=== PATIENT | female | born 1940 | race Caucasian/White ===

== ENCOUNTER → 2022-03-08 | Day surgery (SDC) | payer MEDICARE ==
[2022-03-08 18:25] LABS: HCT 30.5 % (37.2-46.3); HGB 9.8 g/dL (12.0-15.0); MCH 30.8 pg (27.0-32.0); MCHC 32.1 g/dL (32.0-37.0); MCV 95.9 fL (80.0-97.0); Mean Platelet Volume 11.2 fL (9.5-12.2); NRBC Per 100 WBC 0 /100 WBCS (0.0-0.0); Platelet Count 179 X 10*3/uL (140-440); RBC 3.18 X 10*6/uL (4.10-5.20); RDW 13.9 % (11.5-14.5); WBC 6.92 X 10*3/uL (4.50-10.00)
== END ==
LOC: LABMARSNF 12:38 → EDSTATUS 12:40
PROVIDERS: ATTEND Family Medicine
DX: I48.91 Unspecified atrial fibrillation (principal); I10 Essential (primary) hypertension
CPT/HCPCS: 85027

== ENCOUNTER 2024-09-29 21:44 | Inpatient (IN) | payer MEDICARE, OTHER ==
--- NOTE | 2024-09-29 21:55 | ED ---
General Adult HPI - General Stated complaint: Weakness Time Seen by Provider: 09/29/24 21:46 - History of Present Illness Initial comments: Patient is an 84-year-old female past medical history of alcoholism, dementia, TIAs, presenting today for altered mental status. History is limited, as patient currently denies any complaints. Per report patient is normally AO x 4, was found by [facility] staff this morning at 7 AM and noted to be AO x 1 with slurred speech. This evening patient's nurse called 911 when patient was noted to have low blood pressure. Patient currently denies any complaints. She denies headache, dizziness, chest pain, shortness of breath, cough, abdominal pain, dysuria, urinary frequency, headache, numbness, weakness. She states that she was told she was here for low blood pressure. She is currently AO x4. She is not on blood thinners. On review of patient's medical [facility], there is no documented history of atrial fibrillation though she is on metoprolol 50 mg daily. No documented history of heart failure. On chart review it appears there is a history of atrial fibrillation on a prior visit in 2021, however no note visible to see further details. Pt denies hx a fib. - Related Data Home Medications Medication Instructions Recorded Confirmed Acetaminophen [Tylenol] 650 mg PO Q6H PRN 09/30/24 09/30/24 Aspirin 81 mg PO DAILY 09/30/24 09/30/24 Atorvastatin [Lipitor] 40 mg PO HS 09/30/24 09/30/24 Metoprolol Succinate (ER) [Toprol 50 mg PO DAILY 09/30/24 09/30/24 Xl] Mirtazapine 7.5 mg PO HS 09/30/24 09/30/24 amLODIPine [Norvasc] 5 mg PO DAILY 09/30/24 09/30/24 Allergies Allergy/AdvReac Type Severity Reaction Status Date / Time No Known Allergies Allergy Verified 09/30/24 07:28 Review of Systems ROS Statement: Those systems with pertinent positive or pertinent negative responses have been documented in the HPI. ROS Other: All systems not noted in ROS Statement are negative. General Exam - General Exam Comments Initial Comments: PE: CONSTITUTIONAL: No apparent distress, chronically ill-appearing, nontoxic SKIN: Warm, dry, no jaundice, hives or petechiae EYES: Pupils are equally round, extraocular movements intact without nystagmus, clear conjunctiva, non-icteric sclera HENT: Normocephalic, atraumatic, dry mucus membranes, oropharynx clear without exudates NECK: , Full range of motion, normal appearance PULMONARY: Clear to auscultation without wheezes, rhonchi, or rales, normal excursion, no accessory muscle use and no stridor CARDIOVASCULAR: Irregularly irregular rate and rhythm, tachycardia, normal S1 and S2. Pulm systolic rubs or gallops. Strong radial pulses with intact distal perfusion. No lower extremity edema GASTROINTESTINAL: Soft, active bowel sounds throughout, non-tender, non- distended, no palpable masses, no rebound or guarding. No hepatosplenomegaly GENITOURINARY: MUSCULOSKELETAL: Extremities have no gross deformity, no edema, redness, or swelling. No calf swelling NEUROLOGIC:_a/o x 3, GCS 15, normal mentation and speech. Moves all extremities x 4 without motor or sensory deficit, cranial nerves: II (visual park without defects), III, IV and (extraocular movements are intact, pupils are equal with normal reaction to light), V (intact facial sensation and jaw opening), VII (no facial droop), IX and X (normal palate movement, midline uvula, normal voice), XI (symmetrical shoulder shrug and lateral head rotation against resistance), XII (midline tongue protrusion). Motor strength is 4/5 and equal in all extremities. No abnormal movements. Normal muscle tone. Sensation to light touch is intact bilaterally. PSYCHIATRIC:_normal mood and affect, thought process is clear and linear Course Vital Signs 09/29/24 09/29/24 09/29/24 21:50 21:59 22:45 Temperature 97.3 F L 97.6 F Pulse Rate 111 H 114 H 101 H Respiratory 18 18 18 Rate Blood Pressure 89/59 94/58 94/58 O2 Sat by Pulse 97 97 99 Oximetry 09/29/24 09/29/24 09/30/24 23:27 23:42 00:45 Temperature Pulse Rate 89 91 70 Respiratory 16 18 18 Rate Blood Pressure 84/58 93/79 O2 Sat by Pulse 96 97 Oximetry 09/30/24 09/30/24 09/30/24 00:53 01:00 02:00 Temperature Pulse Rate 75 80 79 Respiratory 18 18 18 Rate Blood Pressure 90/54 93/52 109/54 O2 Sat by Pulse 99 97 Oximetry 09/30/24 09/30/24 09/30/24 03:00 04:00 05:30 Temperature Pulse Rate 80 80 80 Respiratory 16 18 18 Rate Blood Pressure 99/52 97/57 106/56 O2 Sat by Pulse 96 96 Oximetry 09/30/24 09/30/24 09/30/24 06:30 07:40 09:05 Temperature 97.7 F Pulse Rate 84 82 103 H Respiratory 16 16 18 Rate Blood Pressure 103/54 107/56 89/48 O2 Sat by Pulse 100 98 Oximetry 09/30/24 09/30/24 09/30/24 10:18 11:14 12:09 Temperature Pulse Rate 107 H 89 85 Respiratory 16 16 16 Rate Blood Pressure 90/63 93/56 110/60 O2 Sat by Pulse 98 97 100 Oximetry 09/30/24 09/30/24 09/30/24 12:10 15:09 16:07 Temperature 97.9 F Pulse Rate 82 72 71 Respiratory 16 16 16 Rate Blood Pressure 110/60 110/58 97/56 O2 Sat by Pulse 99 99 93 L Oximetry 09/30/24 16:39 Temperature 98.0 F Pulse Rate 74 Respiratory 16 Rate Blood Pressure 102/68 O2 Sat by Pulse 99 Oximetry - Reevaluation(s) Reevaluation #1: WBC count ~[id number]. Now suspect pt's presentation today 2/2 infection. Blood cultures and lactic have already been ordered. Unknown infectious source though suspect UTI given pt's age and appears chronically debilitated. Ordered 1 G Rocephin, UA pending. Pt has received total 30 cc/kg bolus of 1500 ml. 09/29/24 22:57 Reevaluation #2: On reassessment patient is sleeping comfortably. Awakens easily. Blood pressure 93/55, MAP of 73. Pulse ox 96%. Heart rate controlled 79 beats per minutes, Cardizem has been turned off. Appears patient may have converted to sinus rhythm we will obtain repeat EKG to confirm. Patient will be admitted for further treatment. 09/30/24 00:23 EKG Findings - EKG Comments: EKG Findings:: A-fib with RVR, rate 105 bpm, intervals within acceptable limits, normal axis, no significant ST elevations or depressions, small T wave inversion lead III. Sinus rhythm, rate 70 bpm, intervals within acceptable limits, normal axis, no significant ST elevations or depressions, small Q wave present lead II, no arrythmia Medical Decision Making - Medical Decision Making Was pt. sent in by a medical professional or institution (, PA, DOUBLE BACK OPERATOR, urgent care, hospital, or correction...) When possible be specific @Send from the [facility] Did you speak to anyone other than the patient for history (EMS, parent, family, police, friend...)? What history was obtained from this source @ -No Did you review nursing and triage notes (agree or disagree)? Why? @ -I reviewed and agree with nursing and triage notes Were old charts reviewed (outside hosp., previous admission, EMS record, old EKG, old radiological studies, urgent care reports/EKG's, correction records)? Report findings @ -Medical records reviewed-no full records available for review, there is a record from a lab visit from February 2022 associated diagnoses of atrial fibril lation, there is no associated with this. I reviewed medical records [facility] There is no documented history of atrial fibrillation, patient is not on blood thinners, she is on metoprolol 50 mg daily Differential Diagnosis (chest pain, altered mental status, abdominal pain women, abdominal pain men, vaginal bleeding, weakness, fever, dyspnea, syncope, headache, dizziness, GI bleed, back pain, seizure, CVA, palpatations, mental health, musculoskeletal)? Differential Altered Mental Status: Hypoglycemia, DKA, hypercapnia, ETOH, overdose, CO poisoning, trauma, myxedema c connie, HTN encephalopathy, infection, encephalitis, psychosis, intercranial hemorrhage, hepatic encephalopathy, meningitis, CVA, this is not meant to be an all-inclusive list EKG interpreted by me (3pts min.). @ -As above X-rays interpreted by me (1pt min.). @Personally reviewed CXR, I see no evidence of cardiomegaly or consolidation, radiologist read poss. retro cardiac consolidation, I disagree with radiologist interpretation CT interpreted by me (1pt min.). @ -No evidence of hemorrhage, agree with rad. interpretation U/S interpreted by me (1pt. min.). @ -No hydronephrosis What testing was considered but not performed or refused? (CT, X-rays, U/S, labs)? Why? @Septic workup was considered however I suspect patient's hypotension is driven by tachycardia, she is afebrile, denies infectious symptoms is nontoxic- appearing What meds were considered but not given or refused? Why? @ -None Did you discuss the management of the patient with other professionals (professionals i.e. , PA, DOUBLE BACK OPERATOR, lab, RT, psych nurse, social service worker, ticket taker, teacher, driver's license reviewing officer, classification case manager)? Give summary @ -No Was smoking cessation discussed for >3mins.? @ -No Was critical care preformed (if so, how long)? @ -Yes 75 minutes Were there social determinants of health that impacted care today? How? (Homel essness, low income, unemployed, alcoholism, drug addiction, transportation, low edu. Level, literacy, decrease access to med. care, halfway, rehab)? @ -No Was there de-escalation of care discussed even if they declined (Discuss DNR or withdrawal of care, Hospice)? @ -No What co-morbidities impacted this encounter? (DM, HTN, Smoking, COPD, CAD, Cancer, CVA, ARF, Chemo, Hep., AIDS, mental health diagnosis, sleep apnea, morbid obesity)? @Dementia, TIA, Was patient admitted / discharged? Hospital course, mention meds given and route, prescriptions, significant lab abnormalities, going to OR and other pertinent info. @ -Admission- Patient is an 84-year-old female presenting today for transient altered mental status and hypotension from [facility]. On arrival patient is at her reported baseline, she denies any complaints. She is in atrial fibrillation with RVR with heart rate of 111. Blood pressure on arrival is hypotensive, 89/59. She has received approximately 600 cc IV fluids prior to arrival. While interviewing patient and examining her 1 litre IV fluids completed transfusing and blood pressure did respond, with MAP of 65 on repeat check. Patient had no focal neurodeficits on exam, she has dry mucous membranes, lungs are clear to auscultation, irregularly irregular rate and rhythm on cardiac exam with holosystolic murmur. No LE edema, abdomen soft and nontender. No infectious symptoms. Patient will receive IV Cardizem bolus and infusion,. Heparin was not initially ordered given patient's altered mental status prior to arrival. CT brain will be obtained to ensure no signs of intracranial hemorrhage prior to administering heparin. I suspect patient symptoms may be secondary to volume depletion or arrhythmia though will obtain blood culture and lactic given vital signs on arrival. Additionally CT brain, chest x-ray, troponin, coags, CBC, CMP, TSH with reflex T4, ammonia level and magnesium levels will be obtained in addition to urinalysis. Labs reviewed, BUN 196 close creatinine 3.09, previously in 2021 was 0.64, GFR of 13, consistent with acute renal failure, ammonia 43, potassium 3.3 ordered replacement. Will order renal ultrasound. Additionally urinalysis was consistent with UTI. Patient has been started on Rocephin. Lactulose ordered. Patient spontaneously converted to sinus rhythm. At this point will hold on heparin infusion. BP has stabilized. On reassessment she is resting comfortably. Plan for admission for sepsis, metabolic encephalopathy, acute renal failure. Case discussed with Dr. Valentine who kindly accepted pt for admission. Undiagnosed new problem with uncertain prognosis? @ -No Drug Therapy requiring intensive monitoring for toxicity (Heparin, Nitro, Insulin, Cardizem)? @ -No Were any procedures done? @ -No Diagnosis/symptom? @sepsis, metabolic encephalopathy, acute renal failure. Acute, or Chronic, or Acute on Chronic? @acute Uncomplicated (without systemic symptoms) or Complicated (systemic symptoms)? @complicated Side effects of treatment? @ -No Exacerbation, Progression, or Severe Exacerbation? @ -No Poses a threat to life or bodily function? How? (Chest pain, USA, OR, pneumonia, PE, COPD, DKA, ARF, appy, cholecystitis, CVA, Diverticulitis, Homicidal, Suicidal, threat to staff... and all critical care pts) @Yes - Lab Data Result diagrams: 10/02/24 14:50 10/04/24 06:10 Lab Results 09/29/24 09/29/24 09/29/24 Range/Units 22:21 22:21 22:21 WBC 32.27 H (4.50-10.00) 10*3/uL RBC 3.30 L (4.10-5.20) 10*6/uL Hgb 10.1 L (12.0-15.0) g/dL Hct 27.7 L (37.2-46.3) % MCV 83.9 (80.0-97.0) fL MCH 30.6 (27.0-32.0) pg MCHC 36.5 (32.0-37.0) g/dL Plt Count 149 (140-440) 10*3/uL MPV 11.1 (9.5-12.2) fL Immature Gran % (Auto) 1.3 % Neutrophils % 92.0 % Lymphocytes % 3.0 % Monocytes % 3.3 % Eosinophils % 0.1 % Basophils % 0.3 % Immature Gran # 0.41 H (0.00-0.04) 10*3/uL Neutrophils # 29.71 H (1.80-7.70) 10*3/uL Lymphocytes # 0.97 (0.90-5.00) 10*3/uL Monocytes # 1.06 H (0.20-1.00) 10*3/uL Eosinophils # 0.02 L (0.04-0.35) 10*3/uL Basophils # 0.10 (0.00-0.10) 10*3/uL PT 12.5 (10.0-12.5) sec INR 1.2 H (<1.2) APTT 26.1 (22.0-30.0) sec Sodium 134 L (137-145) mmol/L Potassium 3.3 L (3.5-5.1) mmol/L Chloride 100 (98-107) mmol/L Carbon Dioxide 17 L (22-30) mmol/L Anion Gap 17 mmol/L BUN 196 H* (7-17) mg/dL Creatinine 3.09 H (0.52-1.04) mg/dL Est GFR (CKD-EPI)AfAm 15 (>60 ml/min/1.73 sqM) Est GFR (CKD-EPI)NonAf 13 (>60 ml/min/1.73 sqM) Glucose 115 H (74-99) mg/dL Plasma Lactic Acid Kael (0.7-2.0) mmol/L Calcium 7.0 L (8.4-10.2) mg/dL Magnesium 2.2 (1.6-2.3) mg/dL Total Bilirubin 1.7 H (0.2-1.3) mg/dL AST 27 (14-36) U/L ALT 30 (4-34) U/L Alkaline Phosphatase 165 H (38-126) U/L Ammonia (<30) umol/L Troponin I (0.000-0.034) ng/mL Total Protein 4.9 L (6.3-8.2) g/dL Albumin 2.1 L (3.5-5.0) g/dL TSH 1.770 (0.465-4.680) mIU/L Urine Color Urine Appearance (Clear) Urine pH (5.0-8.0) Ur Specific Marion (1.001-1.035) Urine Protein (Negative) Urine Glucose (UA) (Negative) Urine Ketones (Negative) Urine Blood (Negative) Urine Nitrite (Negative) Urine Bilirubin (Negative) Urine Urobilinogen (<2.0) mg/dL Ur Leukocyte Esterase (Negative) Urine RBC (0-5) /hpf Urine WBC (0-5) /hpf Ur Squamous Epith Cells (0-4) /hpf Urine Bacteria (None) /hpf Cellular Casts (0) /lpf Hyaline Casts (0-2) /lpf Granular Casts (0) /lpf Urine Mucus (None) /hpf 09/29/24 09/29/24 09/29/24 Range/Units 22:21 22:21 23:10 WBC (4.50-10.00) 10*3/uL RBC (4.10-5.20) 10*6/uL Hgb (12.0-15.0) g/dL Hct (37.2-46.3) % MCV (80.0-97.0) fL MCH (27.0-32.0) pg MCHC (32.0-37.0) g/dL Plt Count (140-440) 10*3/uL MPV (9.5-12.2) fL Immature Gran % (Auto) % Neutrophils % % Lymphocytes % % Monocytes % % Eosinophils % % Basophils % % Immature Gran # (0.00-0.04) 10*3/uL Neutrophils # (1.80-7.70) 10*3/uL Lymphocytes # (0.90-5.00) 10*3/uL Monocytes # (0.20-1.00) 10*3/uL Eosinophils # (0.04-0.35) 10*3/uL Basophils # (0.00-0.10) 10*3/uL PT (10.0-12.5) sec INR (<1.2) APTT (22.0-30.0) sec Sodium (137-145) mmol/L Potassium (3.5-5.1) mmol/L Chloride (98-107) mmol/L Carbon Dioxide (22-30) mmol/L Anion Gap mmol/L BUN (7-17) mg/dL Creatinine (0.52-1.04) mg/dL Est GFR (CKD-EPI)AfAm (>60 ml/min/1.73 sqM) Est GFR (CKD-EPI)NonAf (>60 ml/min/1.73 sqM) Glucose (74-99) mg/dL Plasma Lactic Acid Kael 0.9 (0.7-2.0) mmol/L Calcium (8.4-10.2) mg/dL Magnesium (1.6-2.3) mg/dL Total Bilirubin (0.2-1.3) mg/dL AST (14-36) U/L ALT (4-34) U/L Alkaline Phosphatase (38-126) U/L Ammonia 43 H (<30) umol/L Troponin I 0.019 (0.000-0.034) ng/mL Total Protein (6.3-8.2) g/dL Albumin (3.5-5.0) g/dL TSH (0.465-4.680) mIU/L Urine Color Yellow Urine Appearance Turbid H (Clear) Urine pH 5.0 (5.0-8.0) Ur Specific Marion 1.013 (1.001-1.035) Urine Protein Trace H (Negative) Urine Glucose (UA) Negative (Negative) Urine Ketones Negative (Negative) Urine Blood Negative (Negative) Urine Nitrite Negative (Negative) Urine Bilirubin Negative (Negative) Urine Urobilinogen <2.0 (<2.0) mg/dL Ur Leukocyte Esterase Moderate H (Negative) Urine RBC 9 H (0-5) /hpf Urine WBC 48 H (0-5) /hpf Ur Squamous Epith Cells 5 H (0-4) /hpf Urine Bacteria Occasional H (None) /hpf Cellular Casts 2 (0) /lpf Hyaline Casts 25 H (0-2) /lpf Granular Casts 9 (0) /lpf Urine Mucus Rare H (None) /hpf Disposition Clinical Impression: Acute metabolic encephalopathy, Uremic encephalopathy, Acute renal failure, Sepsis secondary to UTI, Hypokalemia Disposition: ADMITTED IP TO THIS HOSP Condition: Stable
[2024-09-29] MEDS: SODIUM CHLORIDE 0.9% 1,000 ML IV ONE (22:17)
[2024-09-29] MEDS: SODIUM CHLORIDE 0.9% 500 ML 500 ML IV ONE ×2 (22:27→23:23)
[2024-09-29 22:33] LABS: Basophils % (A) 0.3 %; Eosinophils # (A) 0.02 10*3/uL (0.04-0.35); Eosinophils % (A) 0.1 %; HCT 27.7 % (37.2-46.3); HGB 10.1 g/dL (12.0-15.0); Lymphocytes # (A) 0.97 10*3/uL (0.90-5.00); MCH 30.6 pg (27.0-32.0); MCHC 36.5 g/dL (32.0-37.0); MCV 83.9 fL (80.0-97.0); Mean Platelet Volume 11.1 fL (9.5-12.2); Monocytes # (A) 1.06 10*3/uL (0.20-1.00); Monocytes % (A) 3.3 %; Neutrophils # (A) 29.71 10*3/uL (1.80-7.70); Platelet Count 149 10*3/uL (140-440); RDW 13.9 % (11.5-14.5); WBC 32.27 10*3/uL (4.50-10.00)
[2024-09-29] MEDS: DILTIAZEM 125 MG in DEXTROSE 5% IN WATER 100 ML IV SCH (22:54)
[2024-09-29 22:58] LABS: INR 1.2 (<1.2); Partial Thromboplastin Time 26.1 sec (22.0-30.0); Prothrombin Time 12.5 sec (10.0-12.5)
[2024-09-29 23:21] LABS: Lactic Acid, Venous 0.9 mmol/L (0.7-2.0)
[2024-09-29 23:23] LABS: ALT 30 U/L (4-34); AST 27 U/L (14-36); African American GFR (CKD) 15 (>60 ml/min/1.73 sqM); Albumin 2.1 g/dL (3.5-5.0); Alkaline Phosphatase 165 U/L (38-126); Anion Gap 17 mmol/L; Carbon Dioxide 17 mmol/L (22-30); Chloride 100 mmol/L (98-107); Glucose 115 mg/dL (74-99); Magnesium 2.2 mg/dL (1.6-2.3); Non-African American GFR(CKD) 13 (>60 ml/min/1.73 sqM); Potassium 3.3 mmol/L (3.5-5.1); Sodium 134 mmol/L (137-145); Total Bilirubin 1.7 mg/dL (0.2-1.3); Total Protein 4.9 g/dL (6.3-8.2)
[2024-09-29] MEDS: DILTIAZEM 5 MG/ML 5 ML VIAL IVP STA (23:23)
[2024-09-29] MEDS: cefTRIAXone IN SWFI 1,000 MG/10 ML SYRINGE IVP STA (23:30)
[2024-09-29 23:31] LABS: Appearance,Urine Turbid (Clear); Bacteria,Urine Occasional /hpf; Bilirubin,Urine Negative (Negative); Blood,Urine Negative (Negative); Cellular Casts,Urine 2 /lpf (0); Color,Urine Yellow; Glucose,Urine (UA) Negative (Negative); Granular Casts,Urine 9 /lpf (0); Hyaline Casts,Urine 25 /lpf (0-2); Ketones,Urine Negative (Negative); Leukocyte Esterase,Urine Moderate (Negative); Mucus,Urine Rare /hpf; Nitrite,Urine Negative (Negative); Protein,Urine Trace (Negative); RBC,Urine 9 /hpf (0-5); Specific Gravity,Urine 1.013 (1.001-1.035); Squamous Epithelial Cell,Urine 5 /hpf (0-4); Urobilinogen,Urine <2.0 mg/dL (<2.0); WBC,Urine 48 /hpf (0-5)
[2024-09-29] MEDS: SODIUM CHLORIDE 0.9% 1,000 ML IV SCH (23:33)
[2024-09-29 23:59] LABS: Blood Urea Nitrogen 196 mg/dL (7-17)
--- NOTE | 2024-09-30 00:11 | CT ---
EXAM: CT Head Without Intravenous Contrast CLINICAL HISTORY: ITS.REASON CT Reason: hx TIA, was altered, slurred speech, now @ baselin TECHNIQUE: Axial computed tomography images of the head/brain without intravenous contrast. CTDI is 49.2 mGy and DLP is 1186.4 mGy-cm. This CT exam was performed using one or more of the following dose reduction techniques: automated exposure control, adjustment of the mA and/or kV according to patient size, and/or use of iterative reconstruction technique. COMPARISON: No relevant prior studies available. FINDINGS: No acute intracranial hemorrhage. No midline shift or mass effect. The territorial alvarez-white matter differentiation is maintained throughout. Age-related cerebral volume loss. Periventricular and subcortical white matter hypoattenuation, consistent with chronic microangiopathy. The visualized orbits appear grossly unremarkable. The calvarium is intact. The visualized paranasal sinuses and mastoid air cells are grossly clear. IMPRESSION: No acute intracranial hemorrhage, midline shift, or mass effect.
[2024-09-30] MEDS ORDERED: HEPARIN SODIUM 1,000 UN/ML (10ML VL) IV PRN (00:24)
[2024-09-30] MEDS ORDERED: HEPARIN SODIUM 1,000 UN/ML (10ML VL) IV ONE (00:24)
[2024-09-30] MEDS: POTASSIUM CHLORIDE 20 MEQ in WATER FOR INJECTION 1 100ML.BAG IVPB STA (00:29)
[2024-09-30] MEDS ORDERED: HEPARIN SOD,PORK IN 0.45% NACL 25,000 UNIT in 0.45% NACL 1 250ML.BAG IV SCH (00:30)
[2024-09-30] MEDS ORDERED: DOCUSATE 100 MG CAP PO PRN (00:36)
[2024-09-30] MEDS ORDERED: MAG HYDROX/AL HYDROX/SIMETH 30 ML CUP PO PRN (00:36)
[2024-09-30] MEDS ORDERED: CALCIUM CARBONATE 500 MG CHEWABLE PO PRN (00:36)
[2024-09-30] MEDS ORDERED: ONDANSETRON 4 MG/2 ML VIAL IVP PRN (00:36)
[2024-09-30] MEDS ORDERED: ACETAMINOPHEN TAB 325 MG TAB PO PRN ×2 (00:36→11:00)
[2024-09-30] MEDS ORDERED: traMADol 50 MG TAB PO PRN (00:36)
[2024-09-30] MEDS ORDERED: NALOXONE 0.4 MG/ML 1 ML VIAL IV PRN (00:36)
--- NOTE | 2024-09-30 00:59 | XR ---
EXAM: XR Chest, 1 View CLINICAL HISTORY: ITS.REASON XR Reason: altered mental status TECHNIQUE: Frontal view of the chest. COMPARISON: No relevant prior studies available. FINDINGS: Lungs: Mild retrocardiac opacity, correlate for pneumonia. Pleural space: Unremarkable. No pneumothorax. Heart: Unremarkable. No cardiomegaly. Mediastinum: Unremarkable. Bones/joints: Unremarkable. IMPRESSION: Mild retrocardiac opacity, correlate for pneumonia.
[2024-09-30] MEDS: LACTULOSE 20 GM/30 ML CUP PO ONE (01:05)
[2024-09-30] MEDS: CALCIUM GLUCONATE IN NACL 1 GM in SALINE 1 100ML.BAG IVPB ONE (01:43)
--- NOTE | 2024-09-30 02:45 | US ---
EXAM: US Retroperitoneal Limited, Renal CLINICAL HISTORY: ITS.REASON US Reason: LUISA, sediment in urine TECHNIQUE: Real-time limited ultrasound of the retroperitoneum with image documentation. COMPARISON: No relevant prior studies available. FINDINGS: Right kidney: Right kidney measures 9.7 cm. No hydronephrosis, mass, cyst, or stone. Left kidney: Left kidney measures 8.9 cm. No hydronephrosis, mass, cyst, or stone. Bladder: Urinary bladder not visualized. Other findings: Cholelithiasis. IMPRESSION: No hydronephrosis.
[2024-09-30 07:59] LABS: African American GFR (CKD) 18 (>60 ml/min/1.73 sqM); Anion Gap 15 mmol/L; Calcium 7.2 mg/dL (8.4-10.2); Carbon Dioxide 17 mmol/L (22-30); Chloride 106 mmol/L (98-107); Glucose 99 mg/dL (74-99); Non-African American GFR(CKD) 15 (>60 ml/min/1.73 sqM); Potassium 3.6 mmol/L (3.5-5.1); Sodium 138 mmol/L (137-145)
[2024-09-30 08:14] LABS: Blood Urea Nitrogen 174 mg/dL (7-17)
[2024-09-30] MEDS ORDERED: FAMOTIDINE 20 MG TAB PO SCH (09:00)
[2024-09-30] MEDS: HEPARIN SODIUM,PORCINE 5,000 UNIT/ML 1 ML VIAL SQ SCH (09:07)
--- NOTE | 2024-09-30 10:55 | P.NPCON ---
History of Present Illness - Reason for Consult acute renal failure - History of Present Illness Reason for consultation: Acute kidney injury History of present illness: Patient is 84-year-old female seen in renal consultation for acute kidney injury. Patient's creatinine in February 2022 was 0.6 and elevated at 3.09 this admission. It is improved to 2.7 today. BUN also extremely elevated but is trending down. Patient is unclear as to why she came to the hospital. She presents from an extended care facility. She was noted to be hypotensive with blood pressure in the systolic 80s and diastolic in the 50s on admission. She was noted to be in A-fib with RVR and was placed on Cardizem drip which has now been discontinued. I do not see any diuretics or NSAIDs on her home medication list. Oral intake has been poor the last few days. No hydronephrosis noted on renal ultrasound. She is on room air. Vital signs are stable. General: No acute distress. HEENT: Head exam is unremarkable. LUNGS: No audible rhonchi or wheezes. HEART: Rate and Rhythm are regular. ABDOMEN: Nontender. EXTREMITITES: No edema. Past Medical History Past Medical History: Atrial Fibrillation History of Any Multi-Drug Resistant Organisms: None Reported Past Psychological History: No Psychological Hx Reported Smoking Status: Never smoker Past Alcohol Use History: None Reported Past Drug Use History: None Reported Medications and Allergies Home Medications Medication Instructions Recorded Confirmed Type Acetaminophen [Tylenol] 650 mg PO Q6H PRN 09/30/24 09/30/24 History Aspirin 81 mg PO DAILY 09/30/24 09/30/24 History Atorvastatin [Lipitor] 40 mg PO HS 09/30/24 09/30/24 History Metoprolol Succinate (ER) [Toprol 50 mg PO DAILY 09/30/24 09/30/24 History Xl] Mirtazapine 7.5 mg PO HS 09/30/24 09/30/24 History amLODIPine [Norvasc] 5 mg PO DAILY 09/30/24 09/30/24 History Allergies Allergy/AdvReac Type Severity Reaction Status Date / Time No Known Allergies Allergy Verified 09/30/24 07:28 Physical Exam Vitals: Vital Signs Temp Pulse Resp BP Pulse Ox 09/30/24 10:18 107 H 16 90/63 98 09/30/24 09:05 103 H 18 89/48 98 09/30/24 07:40 97.7 F 82 16 107/56 100 09/30/24 06:30 84 16 103/54 09/30/24 05:30 80 18 106/56 96 09/30/24 04:00 80 18 97/57 96 09/30/24 03:00 80 16 99/52 09/30/24 02:00 79 18 109/54 09/30/24 01:00 80 18 93/52 97 09/30/24 00:53 75 18 90/54 99 09/30/24 00:45 70 18 93/79 97 09/29/24 23:42 91 18 84/58 96 09/29/24 23:27 89 16 09/29/24 22:45 97.6 F 101 H 18 94/58 99 09/29/24 21:59 114 H 18 94/58 97 09/29/24 21:50 97.3 F L 111 H 18 89/59 97 Intake and Output 09/29/24 09/30/24 09/30/24 22:59 06:59 14:59 Intake Total 12.0 Balance 12.0 Intake: Intake, IV Titration 12.0 Amount Diltiazem 125 mg In 12.0 Dextrose 5% in Water 100 ml @ 5 MG/HR 5 mls/hr IV .Q24H [facility] Rx#:[id number] Other: Weight 49.895 kg Results - Lab Results Most recent lab results Calcium 7.2 mg/dL (8.4-10.2) L 09/30/24 07:18 Magnesium 2.0 mg/dL (1.6-2.3) 09/30/24 07:18 09/29/24 22:21 09/30/24 07:18 Assessment and Plan Plan: Assessment: 1. Acute kidney injury secondary to ATN secondary to hypovolemia and hypotension. Creatinine 3.09 on admission and is 2.7 today. Creatinine in February 2022 was 0.6. No hydronephrosis noted on kidney ultrasound. 2. A-fib with RVR status post Cardizem drip. 3. Metabolic acidosis secondary to acute kidney injury and IV fluids. 4. UTI. Received Rocephin on admission. 5. Hypokalemia from poor intake. Magnesium normal. Replaced. Better. Plan: Change IV fluids from normal saline to bicarb drip. Follow-up echocardiogram. Avoid nephrotoxins. Continue to monitor renal function and urine output. Bladder scan to rule out urinary retention. Thank you for the consultation. I will continue to follow the patient with you during her hospital stay.
--- NOTE | 2024-09-30 11:06 | P.CRDCN ---
History of Present Illness Consult date: 09/30/24 Reason for Consult (text): A-fib with RVR History of present illness: This is an 84-year-old with past medical history of dementia, alcohol abuse, TIAs. Patient presented to the hospital due to altered mental status. Patient resides at [facility] [place] [facility] and was found to have a significant change in mental status as well as slurred speech and was brought into the hospital for further evaluation. Patient apparently was back to baseline mentation in the emergency center but was found to be in atrial fibrillation which is new for her. Patient was also found to be hypotensive. Blood pressure 107/56, heart rate 82, pulse ox 100% on room air. Patient is seen today in the emergency center waiting for a bed on the cardiac stepdown unit. Patient has been started on Cardizem drip currently at 5 mg/h and subcu heparin. Potassium and calcium been replaced. She is status post 2 L of IV fluid bolus -EKG: #1 atrial fibrillation 104 bpm, #2 sinus rhythm at 78 bpm. -Chest x-ray: Mild retrocardiac opacity. Correlate for pneumonia -CT brain: No acute process. -Renal ultrasound reveals no hydronephrosis. -Laboratory studies: Troponin negative x 2 WBC 32.2, hemoglobin 10.1. INR 1.2. Sodium 134, potassium 3.3, BUN 196, creatinine 3.09., Magnesium 2.2, alkaline phosphatase 165, ammonia 43. Calcium 7.0. Ionized calcium 3.9. Urinalysis positive for infection. -Home cardiac medications: Amlodipine 5 mg daily, aspirin 81 mg daily, atorvastatin 40 mg at bedtime, metoprolol succinate 50 mg daily. Review Of Systems: At the time of my exam: CONSTITUTIONAL: Denies fever or chills. HEENT: Denies blurred vision, vision changes, or eye pain. Denies hemoptysis CARDIOVASCULAR: Denies chest pain. Denies orthopnea. Denies PND. Denies palpitations RESPIRATORY: Denies shortness of breath. GASTROINTESTINAL: Denies abdominal pain. Denies nausea or vomiting. HEMATOLOGIC: Denies bleeding disorders. GENITOURINARY: Denies any blood in urine. SKIN: Denies puritis. Denies rash. Physical examination: Gen: This is an 84-year-old thin cachectic appearing female in no acute distress VS: reviewed HEENT: Head is atraumatic, normocephalic. Pupils equal, round. Sclerae is anicteric. NECK: Supple. No JVD. LUNGS: Clear to auscultation. No wheezes or rhonchi. No intercostal retractions. HEART: Regular rate and rhythm. 4/6 systolic murmur at the right border and apex. ABDOMEN: Soft No tenderness. EXTREMITIES: No pedal edema. No calf tenderness. NEUROLOGICAL: Patient is awake. Assessment: New onset paroxysmal A-fib with RVR, converted to sinus rhythm Acute kidney injury Metabolic acidosis Leukocytosis, UTI Possible pneumonia Dementia Alcohol abuse TIAs Severe protein calorie malnutrition with BMI of 18 Plan: Resume patient's home cardiac medications, hold amlodipine due to hypotension Discontinue Cardizem drip Obtain 2-D echocardiogram and Doppler study to assess cardiac structure and function Further recommendations to follow based upon clinical course Thank you kindly for this consultation. Nurse practitioner note has been reviewed, I agree with documented findings and plan of care. Patient was seen and examined. Past Medical History Past Medical History: Atrial Fibrillation History of Any Multi-Drug Resistant Organisms: None Reported Past Psychological History: No Psychological Hx Reported Smoking Status: Never smoker Past Alcohol Use History: None Reported Past Drug Use History: None Reported Medications and Allergies Home Medications Medication Instructions Recorded Confirmed Type Acetaminophen [Tylenol] 650 mg PO Q6H PRN 09/30/24 09/30/24 History Aspirin 81 mg PO DAILY 09/30/24 09/30/24 History Atorvastatin [Lipitor] 40 mg PO HS 09/30/24 09/30/24 History Metoprolol Succinate (ER) [Toprol 50 mg PO DAILY 09/30/24 09/30/24 History Xl] Mirtazapine 7.5 mg PO HS 09/30/24 09/30/24 History amLODIPine [Norvasc] 5 mg PO DAILY 09/30/24 09/30/24 History Allergies Allergy/AdvReac Type Severity Reaction Status Date / Time No Known Allergies Allergy Verified 09/30/24 07:28 Physical Exam Vitals: Vital Signs Temp Pulse Resp BP Pulse Ox 09/30/24 07:40 97.7 F 82 16 107/56 100 09/30/24 06:30 84 16 103/54 09/30/24 05:30 80 18 106/56 96 09/30/24 04:00 80 18 97/57 96 09/30/24 03:00 80 16 99/52 09/30/24 02:00 79 18 109/54 09/30/24 01:00 80 18 93/52 97 09/30/24 00:53 75 18 90/54 99 09/30/24 00:45 70 18 93/79 97 09/29/24 23:42 91 18 84/58 96 09/29/24 23:27 89 16 09/29/24 22:45 97.6 F 101 H 18 94/58 99 09/29/24 21:59 114 H 18 94/58 97 09/29/24 21:50 97.3 F L 111 H 18 89/59 97 Intake and Output 09/29/24 09/30/24 09/30/24 22:59 06:59 14:59 Intake Total 12.0 Balance 12.0 Intake: Intake, IV Titration 12.0 Amount Diltiazem 125 mg In 12.0 Dextrose 5% in Water 100 ml @ 5 MG/HR 5 mls/hr IV .Q24H [facility] Rx#:[id number] Other: Weight 49.895 kg Results 09/29/24 22:21 09/30/24 07:18 Cardiac Enzymes 09/29/24 09/29/24 09/30/24 Range/Units 22:21 22:21 00:47 AST 27 (14-36) U/L Troponin I 0.019 0.019 (0.000-0.034) ng/mL Coagulation 09/29/24 Range/Units 22:21 PT 12.5 (10.0-12.5) sec APTT 26.1 (22.0-30.0) sec CBC 09/29/24 Range/Units 22:21 WBC 32.27 H (4.50-10.00) 10*3/uL RBC 3.30 L (4.10-5.20) 10*6/uL Hgb 10.1 L (12.0-15.0) g/dL Hct 27.7 L (37.2-46.3) % Plt Count 149 (140-440) 10*3/uL Comprehensive Metabolic Panel 09/29/24 Range/Units 22:21 Sodium 134 L (137-145) mmol/L Potassium 3.3 L (3.5-5.1) mmol/L Chloride 100 (98-107) mmol/L Carbon Dioxide 17 L (22-30) mmol/L BUN 196 H* (7-17) mg/dL Creatinine 3.09 H (0.52-1.04) mg/dL Glucose 115 H (74-99) mg/dL Calcium 7.0 L (8.4-10.2) mg/dL AST 27 (14-36) U/L ALT 30 (4-34) U/L Alkaline Phosphatase 165 H (38-126) U/L Total Protein 4.9 L (6.3-8.2) g/dL Albumin 2.1 L (3.5-5.0) g/dL Current Medications Generic Name Dose Route Start Last Admin Trade Name Freq PRN Reason Stop Dose Admin Al Hydroxide/Mg Hydroxide 15 ml 09/30/24 00:36 Mag Hydrox/Al Hydrox/Simeth 30 Ml Cup PO Q6HR PRN Indigestion Heparin Sodium (Porcine) 5,000 unit 09/30/24 09:00 Heparin Sodium,Porcine 5,000 Unit/Ml 1 Ml Vial SQ Q12HR NAT[facility] Diltiazem HCl 125 mg/ Dextrose 125 mls @ 5 mls/hr 09/29/24 22:30 09/30/24 00:45 /Water IV 0 mg/hr .Q24H [facility] 0 mls/hr Titration Protocol 5 MG/HR Sodium Chloride 1,000 mls @ 75 mls/hr 09/29/24 22:30 09/29/24 23:33 Saline 0.9% IV 75 mls/hr .[id number] NATY Administration Naloxone HCl 0.2 mg 09/30/24 00:36 Naloxone 0.4 Mg/Ml 1 Ml Vial IV Q2M PRN Opioid Reversal Ondansetron HCl 4 mg 09/30/24 00:36 Ondansetron 4 Mg/2 Ml Vial IVP Q8HR PRN Nausea And Vomiting Intake and Output 09/29/24 09/30/24 09/30/24 22:59 06:59 14:59 Intake Total 12.0 Balance 12.0 Intake: Intake, IV Titration 12.0 Amount Diltiazem 125 mg In 12.0 Dextrose 5% in Water 100 ml @ 5 MG/HR 5 mls/hr IV .Q24H [facility] Rx#:[id number] Other: Weight 49.895 kg 09/29/24 22:21 09/29/24 22:21
[2024-09-30] MEDS: ASPIRIN 81 MG PO SCH (11:42)
[2024-09-30] MEDS: METOPROLOL SUCCINATE (ER) 50 MG TAB.ER.24H PO SCH (11:43)
[2024-09-30] MEDS: DEXTROSE 5% IN WATER 1,000 ML with SODIUM BICARB (1 MEQ/ML) 150 ML IV SCH (11:43)
[2024-09-30] MEDS: ENOXAPARIN 30 MG/0.3 ML SYRINGE SQ SCH (11:48)
--- NOTE | 2024-09-30 12:19 | P.CNNES ---
History of Present Illness Consult date: 09/30/24 Requesting physician: Melany Bailey Reason for Consult: encephalopathy History of Present Illness: This is an 84 year-old woman who presents from [facility] for altered mental status. Some of the history is obtained from EMR. Patient does not what transpired and brought her to the hospital but thinks she might have passed out. Per the ED physician note, the patient was found by staff members at [facility] that she was confused and was only oriented X1 and had slurred speech at around 7am yesterday. Patient was noted to have low blood pressure. It seems she has history of atrial fibrillation but denied have history of atrial fibrillation. She is on Metoprolol. Patient denies history of stroke, seizure. She denies any tongue bite. Denies any headache. At baseline she is oriented X4. It seems patient has underlying history of Dementia, TIA and alcoholism per medical record. She is on ASA 81mg as home medication. Some of the work-up during this hospital visit consisted of: On initial presentation her blood pressure was in 80's over 40's Patient is afebrile. wbc is 32K and is neutrophilic BUT is 196 and Creatnine is 3.09 Ammonia 43 Calcium is 7.0 and ionized calcium is 3.9 TSH is normal limits. U/A is leukocyte esterase is moderate, urine wbc is 48 and bacteria is occasional I reviewed the rest of lab work-up. CT head is reported as No acute intracranial hemorrhage, midline shift or mass effect. I personally reviewed CT head and agree with report. I also feel there is likely old stroke over the right boyd radiata region/external capsule. EKG: A-fib with RVR. Review of Systems Limited but as per HPI. Past Medical History Past Medical History: Atrial Fibrillation History of Any Multi-Drug Resistant Organisms: None Reported Past Psychological History: No Psychological Hx Reported Smoking Status: Never smoker Past Alcohol Use History: None Reported Past Drug Use History: None Reported Medications and Allergies Home Medications Medication Instructions Recorded Confirmed Type Acetaminophen [Tylenol] 650 mg PO Q6H PRN 09/30/24 09/30/24 History Aspirin 81 mg PO DAILY 09/30/24 09/30/24 History Atorvastatin [Lipitor] 40 mg PO HS 09/30/24 09/30/24 History Metoprolol Succinate (ER) [Toprol 50 mg PO DAILY 09/30/24 09/30/24 History Xl] Mirtazapine 7.5 mg PO HS 09/30/24 09/30/24 History amLODIPine [Norvasc] 5 mg PO DAILY 09/30/24 09/30/24 History Allergies Allergy/AdvReac Type Severity Reaction Status Date / Time No Known Allergies Allergy Verified 09/30/24 07:28 Physical Examination - Vital Signs Vital Signs: Vital Signs Temp Pulse Resp BP Pulse Ox 09/30/24 11:14 89 16 93/56 97 09/30/24 10:18 107 H 16 90/63 98 09/30/24 09:05 103 H 18 89/48 98 09/30/24 07:40 97.7 F 82 16 107/56 100 09/30/24 06:30 84 16 103/54 09/30/24 05:30 80 18 106/56 96 09/30/24 04:00 80 18 97/57 96 09/30/24 03:00 80 16 99/52 09/30/24 02:00 79 18 109/54 09/30/24 01:00 80 18 93/52 97 09/30/24 00:53 75 18 90/54 99 09/30/24 00:45 70 18 93/79 97 09/29/24 23:42 91 18 84/58 96 09/29/24 23:27 89 16 09/29/24 22:45 97.6 F 101 H 18 94/58 99 09/29/24 21:59 114 H 18 94/58 97 09/29/24 21:50 97.3 F L 111 H 18 89/59 97 Intake and Output 09/29/24 09/30/24 09/30/24 22:59 06:59 14:59 Intake Total 12.0 Balance 12.0 Intake: Intake, IV Titration 12.0 Amount Diltiazem 125 mg In 12.0 Dextrose 5% in Water 100 ml @ 5 MG/HR 5 mls/hr IV .Q24H [facility] Rx#:[id number] Other: Weight 49.895 kg General: Lying in bed and is not in acute distress. She appears pale and lethargic. HENT: Supple neck. Neuro: Somewhat limited. The patient is mildly drowsy but is awakeable to voice. Is oriented to self, correctly stated she is in the hospital and correctly stated the current year. Is following some simple commands. Pupils are round, 4mm and reactive to light. She refuses to cooperate for visual park. EOM intact horizontally and no nystamgus. No facial weakness from limitation of examination. No dysarthria. Motor: The strength is very hard to assess individual muscles strength because of her cooperation. But briefly raised bilateral uppers above gravity and wiggled toes. Upon asking the patient to lift the legs above gravity, she stated " I want to go home" and refused to cooperate. Reflex: Hard to assess because of her cooperation. Plantars: Mute bilaterally. Results - Laboratory Findings CBC and BMP: 09/29/24 22:21 09/30/24 07:18 Abnormal Lab Findings: Abnormal Labs 09/29/24 09/29/24 09/29/24 22:21 22:21 22:21 WBC 32.27 H RBC 3.30 L Hgb 10.1 L Hct 27.7 L Immature Gran # 0.41 H Neutrophils # 29.71 H Monocytes # 1.06 H Eosinophils # 0.02 L INR 1.2 H Sodium 134 L Potassium 3.3 L Carbon Dioxide 17 L BUN 196 H* Creatinine 3.09 H Glucose 115 H Calcium 7.0 L Ionized Calcium Wendi Total Bilirubin 1.7 H Alkaline Phosphatase 165 H Ammonia Total Protein 4.9 L Albumin 2.1 L Urine Appearance Urine Protein Ur Leukocyte Esterase Urine RBC Urine WBC Ur Squamous Epith Cells Urine Bacteria Hyaline Casts Urine Mucus 09/29/24 09/29/24 09/30/24 22:21 23:10 01:11 WBC RBC Hgb Hct Immature Gran # Neutrophils # Monocytes # Eosinophils # INR Sodium Potassium Carbon Dioxide BUN Creatinine Glucose Calcium Ionized Calcium Wendi 3.9 L Total Bilirubin Alkaline Phosphatase Ammonia 43 H Total Protein Albumin Urine Appearance Turbid H Urine Protein Trace H Ur Leukocyte Esterase Moderate H Urine RBC 9 H Urine WBC 48 H Ur Squamous Epith Cells 5 H Urine Bacteria Occasional H Hyaline Casts 25 H Urine Mucus Rare H 09/30/24 07:18 WBC RBC Hgb Hct Immature Gran # Neutrophils # Monocytes # Eosinophils # INR Sodium Potassium Carbon Dioxide 17 L BUN 174 H* Creatinine 2.70 H Glucose Calcium 7.2 L Ionized Calcium Wendi Total Bilirubin Alkaline Phosphatase Ammonia Total Protein Albumin Urine Appearance Urine Protein Ur Leukocyte Esterase Urine RBC Urine WBC Ur Squamous Epith Cells Urine Bacteria Hyaline Casts Urine Mucus Assessment and Plan Assessment: This is an 84 y/o woman who presents to emergency department because of altered mental status and slurred speech. She was found to be hypotensive at her nursing facility. In our facility she was found to be in Acute renal failure with elevated ammonia. Altered mental status due to toxic-metabolic/uremic encephalopathy (has LUISA, elevated ammonia, hypotension and hypocalcemia)--mentation improved Reported episode of dysarthria probable due to above. But cannot rule out acute CVA especially with hx of A-fib Acute renal failure Hyperammonemia Hypotension Hypocalcemia Leukocytosis and patient is afebrile. Possible due to dehydration. R/O acute UTI History of dementia History of reported TIA but I feels she had old stroke over the right boyd radiata/external capsule region History of atrial fibrillation and is not on anticoagulation. Current EKG show A-fib with RVR History of reported alcoholism Plan: I ordered a routine EEG, and I feel seizure is unlikely. MRI Brain machine continues to be down so will consider MRI Brain once machine is functional to rule out acute to subacute stroke. Will consider a repeat CT head tomorrow to assess if any new changes not seen on initial CT. Patient is on ASA 81mg daily and Lipitor 40mg qhs. Ordered carotid duplex. 2D echo is ordered and pending. Cardiology team is consulted. Nephrology team is consulted Q4 hour neuro checks. Cardiac monitoring Will defer the rest of medical management to primary team and other specialist. Thank you for the consultation. Time with Patient: Greater than 30
--- NOTE | 2024-09-30 13:10 | US ---
EXAMINATION TYPE: US carotid duplex BILAT DATE OF EXAM: 09/30/2024 COMPARISON: NONE CLINICAL INDICATION: Female, 84 years old with history of stroke. Dysarthria; Stroke Additional History: .... TECHNIQUE: Grayscale, color Doppler and spectral Doppler evaluation of the bilateral carotid systems and vertebral arteries. Indirect Doppler criteria was utilized. FINDINGS: EXAM MEASUREMENTS: RIGHT: Peak Systolic Velocity (PSV) cm/sec ----- Right CCA: 83.2 ----- Right ICA: 82.6 ----- Right ECA: 55.7 ICA/CCA ratio: 1.0 RIGHT: End Diastole cm/sec ----- Right CCA: 9.8 ----- Right ICA: 16.6 ----- Right ECA: 0.0 LEFT: Peak Systolic Velocity (PSV) cm/sec ----- Left CCA: 54.5 ----- Left ICA: 76.4 ----- Left ECA: 59.0 ICA/CCA ratio: 1.4 LEFT: End Diastole cm/sec ----- Left CCA: 4.9 ----- Left ICA: 13.9 ----- Left ECA: 0.0 VERTEBRALS (direction of flow): Right Vertebral: Antegrade Left Vertebral: Antegrade Rhythm: Normal ENERGY RISK MANAGEMENT ANALYST NOTES: No significant stenosis seen Color Doppler imaging shows patency with blood flow throughout the carotid artery. Spectral waveforms are within normal limits. IMPRESSION: Right: Less than 50% stenosis of the carotid bifurcation. Left: Less than 50% stenosis of the carotid bifurcation. Criteria for Assigning % of Stenosis / Diameter reduction (Estimation based on the indirect measurements of the internal carotid artery velocities (ICA PSV). 1. Normal (no stenosis)=ICA PSV < 180 cm/s: ratio < 2.0: ICA EDV<40 cm/s. 2. Less than 50% stenosis=ICA PSV < 180 cm/s: ratio < 2.0: ICA EDV<40 cm/s. 3. 50 to 69% stenosis=ICA PSV of 180 to 230 cm/s: ration 2.0 ? 4.0: ICA EDV 40-100 cm/s. PSV 125-180 cm/sec and ICA/CCA PSV Ratio ? 2.0 is also consistent with 50-69% stenosis 4. Greater than 70% stenosis to near occlusion= ICA PSV > 230 cm/s: ratio > 4.0: ICA EDV > 100 cm/s. 5. Near occlusion= ICA PSV velocities may be low or undetectable: variable ratio and ICA EDV. 6. Total occlusion=unable to detect flow. [facility], , 09/30/2024 1:08 PM
--- NOTE | 2024-09-30 18:13 | P.HPIM ---
History of Present Illness H&P Date: 09/30/24 Chief Complaint: Altered mentation 84-year-old patient, brought in by the EMS to the ER. Resident of [facility]. Per the EMS report the nurse reported that patient lethargic low blood pressure slurred speech refusing to eat and drink. Symptoms started about 7 AM yesterday. Patient had refused transport but patient's guardian requested transport for further evaluation. Initial vital signs per the EMS recorded were blood pressure 83/49 pulse 112 pulse ox 96% Patient not a very good historian. States that she has been took a fall. While she was using a walker. Normally has a bowel movement about once a week. She is appetite is okay. Denies any fever and chills. Rather forgetful. Review of systems: GEN.: Tired EYES: None HEENT: None NECK: None RESPIRATORY: None CARDIOVASCULAR: None GASTROINTESTINAL: None GENITOURINARY: None MUSCULOSKELETAL: Joint pains LYMPHATICS: None HEMATOLOGICAL: None PSYCHIATRY: Forgetful NEUROLOGICAL: Uses a walker Social history: Resident of [facility]. Physical examination: VITAL SIGNS: 97.3, 111, 18, 89/59, 97% room air upon presentation GENERAL: BMI 18.9, thin built lying in bed tired appearing. EYES: Pupils equal. Conjunctiva danyelle l. HEENT: External appearance of nose and ears normal, oral cavity grossly normal. NECK: JVD not raised; masses not palpable. HEART: First and second heart sounds are normal; no edema. LUNGS: Respiratory rate normal; decreased breath sound. ABDOMEN: Soft, nontender, liver spleen not palpable, no masses palpable. PSYCH: Tired. Able answer simple questions. Limited historian l. MUSCULOSKELETAL:No Clubbing/cyanosis;muscles-grossly intact. Loss of muscle mass subcutaneous fat. Prominent bones OA. NEUROLOGICAL: Cranial nerves grossly intact; no facial asymmetry, power and sensation grossly intact. LYMPHATICS: No lymph nodes palpable in the axilla and neck INVESTIGATIONS, reviewed in the clinical context: September 29, 2024: White count 32.2 hemoglobin 10.1 platelets 149 sodium 134 potassium 3.3 BUN 196 creatinine 3.09 total bilirubin 1.7 ammonia 43 TSH 1.7 albumin 2.1 Troponin I 0.019, 0.019 UA: Trace protein, negative nitrate, moderate leukoesterase EKG tracing personally reviewed by me-atrial fibrillation, some ST-T wave c hanges. CT head without contrast: Age-related cerebral volume loss. Chest x-ray film personally reviewed by me-possibly chronic changes. Some hyperinflation Renal ultrasound: Unremarkable Assessment plan: - Acute delirium. Could be from underlying UTI and encephalopathy from kidney injury. Patient not a very good historian - Persistent atrial fibrillation Toprol-XL Because of frailty falls and high risk of fall not a candidate for anticoagulation - Acute kidney injury. Rule out chronic component. Probable ATN Follow I's and O's. IV fluids. Nephrology consulted Renal ultrasound - Metabolic acidosis from kidney injury Sodium bicarbonate drip - Chronic insomnia Mirtazapine - Severe protein calorie malnutrition Ensure 1 can 3 times daily - Essential hypertension. Blood pressure running low likely because of kidney injury and antihypertensives. Hold off amlodipine. - Hypotension from volume loss and antihypertensives Hold off amlodipine. - Cognitive impairment - Chronic gait dysfunction, uses a walker - Primary osteoarthritis Pain medication as needed Past Medical History Past Medical History: Atrial Fibrillation History of Any Multi-Drug Resistant Organisms: None Reported Past Psychological History: No Psychological Hx Reported Smoking Status: Never smoker Past Alcohol Use History: None Reported Past Drug Use History: None Reported Medications and Allergies Home Medications Medication Instructions Recorded Confirmed Type Acetaminophen [Tylenol] 650 mg PO Q6H PRN 09/30/24 09/30/24 History Aspirin 81 mg PO DAILY 09/30/24 09/30/24 History Atorvastatin [Lipitor] 40 mg PO HS 09/30/24 09/30/24 History Metoprolol Succinate (ER) [Toprol 50 mg PO DAILY 09/30/24 09/30/24 History Xl] Mirtazapine 7.5 mg PO HS 09/30/24 09/30/24 History amLODIPine [Norvasc] 5 mg PO DAILY 09/30/24 09/30/24 History Allergies Allergy/AdvReac Type Severity Reaction Status Date / Time No Known Allergies Allergy Verified 09/30/24 07:28 Physical Exam Vitals: Vital Signs Temp Pulse Resp BP Pulse Ox 09/30/24 12:10 97.9 F 82 16 110/60 99 09/30/24 12:09 85 16 110/60 100 09/30/24 11:14 89 16 93/56 97 09/30/24 10:18 107 H 16 90/63 98 09/30/24 09:05 103 H 18 89/48 98 09/30/24 07:40 97.7 F 82 16 107/56 100 09/30/24 06:30 84 16 103/54 09/30/24 05:30 80 18 106/56 96 09/30/24 04:00 80 18 97/57 96 09/30/24 03:00 80 16 99/52 09/30/24 02:00 79 18 109/54 09/30/24 01:00 80 18 93/52 97 09/30/24 00:53 75 18 90/54 99 09/30/24 00:45 70 18 93/79 97 09/29/24 23:42 91 18 84/58 96 09/29/24 23:27 89 16 09/29/24 22:45 97.6 F 101 H 18 94/58 99 09/29/24 21:59 114 H 18 94/58 97 09/29/24 21:50 97.3 F L 111 H 18 89/59 97 Intake and Output 09/29/24 09/30/24 09/30/24 22:59 06:59 14:59 Intake Total 12.0 Balance 12.0 Intake: Intake, IV Titration 12.0 Amount Diltiazem 125 mg In 12.0 Dextrose 5% in Water 100 ml @ 5 MG/HR 5 mls/hr IV .Q24H [facility] Rx#:[id number] Other: Weight 49.895 kg Results CBC & Chem 7: 09/29/24 22:21 09/30/24 07:18 Labs: Abnormal Lab Results - Last 24 Hours (Table) 09/29/24 09/29/24 09/29/24 Range/Units 22:21 22:21 22:21 WBC 32.27 H (4.50-10.00) 10*3/uL RBC 3.30 L (4.10-5.20) 10*6/uL Hgb 10.1 L (12.0-15.0) g/dL Hct 27.7 L (37.2-46.3) % Immature Gran # 0.41 H (0.00-0.04) 10*3/uL Neutrophils # 29.71 H (1.80-7.70) 10*3/uL Monocytes # 1.06 H (0.20-1.00) 10*3/uL Eosinophils # 0.02 L (0.04-0.35) 10*3/uL INR 1.2 H (<1.2) Sodium 134 L (137-145) mmol/L Potassium 3.3 L (3.5-5.1) mmol/L Carbon Dioxide 17 L (22-30) mmol/L BUN 196 H* (7-17) mg/dL Creatinine 3.09 H (0.52-1.04) mg/dL Glucose 115 H (74-99) mg/dL Calcium 7.0 L (8.4-10.2) mg/dL Ionized Calcium Wendi (4.5-5.3) mg/dL Total Bilirubin 1.7 H (0.2-1.3) mg/dL Alkaline Phosphatase 165 H (38-126) U/L Ammonia (<30) umol/L Total Protein 4.9 L (6.3-8.2) g/dL Albumin 2.1 L (3.5-5.0) g/dL Urine Appearance (Clear) Urine Protein (Negative) Ur Leukocyte Esterase (Negative) Urine RBC (0-5) /hpf Urine WBC (0-5) /hpf Ur Squamous Epith Cells (0-4) /hpf Urine Bacteria (None) /hpf Hyaline Casts (0-2) /lpf Urine Mucus (None) /hpf 09/29/24 09/29/24 09/30/24 Range/Units 22:21 23:10 01:11 WBC (4.50-10.00) 10*3/uL RBC (4.10-5.20) 10*6/uL Hgb (12.0-15.0) g/dL Hct (37.2-46.3) % Immature Gran # (0.00-0.04) 10*3/uL Neutrophils # (1.80-7.70) 10*3/uL Monocytes # (0.20-1.00) 10*3/uL Eosinophils # (0.04-0.35) 10*3/uL INR (<1.2) Sodium (137-145) mmol/L Potassium (3.5-5.1) mmol/L Carbon Dioxide (22-30) mmol/L BUN (7-17) mg/dL Creatinine (0.52-1.04) mg/dL Glucose (74-99) mg/dL Calcium (8.4-10.2) mg/dL Ionized Calcium Wendi 3.9 L (4.5-5.3) mg/dL Total Bilirubin (0.2-1.3) mg/dL Alkaline Phosphatase (38-126) U/L Ammonia 43 H (<30) umol/L Total Protein (6.3-8.2) g/dL Albumin (3.5-5.0) g/dL Urine Appearance Turbid H (Clear) Urine Protein Trace H (Negative) Ur Leukocyte Esterase Moderate H (Negative) Urine RBC 9 H (0-5) /hpf Urine WBC 48 H (0-5) /hpf Ur Squamous Epith Cells 5 H (0-4) /hpf Urine Bacteria Occasional H (None) /hpf Hyaline Casts 25 H (0-2) /lpf Urine Mucus Rare H (None) /hpf 06/19/25 Range/Units 07:18 WBC (4.50-10.00) 10*3/uL RBC (4.10-5.20) 10*6/uL Hgb (12.0-15.0) g/dL Hct (37.2-46.3) % Immature Gran # (0.00-0.04) 10*3/uL Neutrophils # (1.80-7.70) 10*3/uL Monocytes # (0.20-1.00) 10*3/uL Eosinophils # (0.04-0.35) 10*3/uL INR (<1.2) Sodium (137-145) mmol/L Potassium (3.5-5.1) mmol/L Carbon Dioxide 17 L (22-30) mmol/L BUN 174 H* (7-17) mg/dL Creatinine 2.70 H (0.52-1.04) mg/dL Glucose (74-99) mg/dL Calcium 7.2 L (8.4-10.2) mg/dL Ionized Calcium Wendi (4.5-5.3) mg/dL Total Bilirubin (0.2-1.3) mg/dL Alkaline Phosphatase (38-126) U/L Ammonia (<30) umol/L Total Protein (6.3-8.2) g/dL Albumin (3.5-5.0) g/dL Urine Appearance (Clear) Urine Protein (Negative) Ur Leukocyte Esterase (Negative) Urine RBC (0-5) /hpf Urine WBC (0-5) /hpf Ur Squamous Epith Cells (0-4) /hpf Urine Bacteria (None) /hpf Hyaline Casts (0-2) /lpf Urine Mucus (None) /hpf
[2024-09-30] MEDS: MIRTAZAPINE 15 MG TAB PO SCH (19:57)
[2024-09-30] MEDS: ATORVASTATIN 40 MG TAB PO SCH (19:57)
--- NOTE | 2024-10-01 01:12 | EEG ---
ELECTROENCEPHALOGRAM REPORT CLINICAL HISTORY: This is an 84-year-old woman with altered mental status. The video EEG is obtained to evaluate for seizure epileptiform activity. RELEVANT MEDICATION: The patient is not on any antiseizure medication. EEG TYPE: This is a routine 21-channel EEG with video using the 10/20 electrode placement system. DESCRIPTION: Wakefulness and drowsiness are obtained. During awake state, the background consists of las-ic-ixenwsic voltage of to 8-9 hertz activity and at times, it is intermixed with diffuse nonrhythmic polymorphic delta activity. There is no physiological stage 2 sleep architecture. There is no focal slowing. Interictal and ictal is none. ACTIVATION PROCEDURE: Photic stimulation did not evoke a posterior driving response. There is no abnormality during the photic stimulation. Hyperventilation is not performed. CLINICAL INTERPRETATION: This is an abnormal routine EEG during awake and drowsy state. There is no focal slowing, epileptiform discharge, or seizure on the EEG. The background slowing is suggestive of [id number] encephalopathy. Lack of epileptiform discharge does not rule out underlying epilepsy. Clinical correlation is recommended. MMODL / IJN: [id number] / VIPIN
[2024-10-01 08:13] LABS: Basophils # (A) 0.02 10*3/uL (0.00-0.10); Basophils % (A) 0.1 %; Eosinophils # (A) 0.05 10*3/uL (0.04-0.35); Eosinophils % (A) 0.2 %; HCT 30.5 % (37.2-46.3); Lymphocytes # (A) 0.85 10*3/uL (0.90-5.00); Lymphocytes % (A) 3.9 %; MCH 30.9 pg (27.0-32.0); MCHC 36.1 g/dL (32.0-37.0); MCV 85.7 fL (80.0-97.0); Mean Platelet Volume 11.3 fL (9.5-12.2); Monocytes # (A) 0.68 10*3/uL (0.20-1.00); Monocytes % (A) 3.1 %; Neutrophils # (A) 19.96 10*3/uL (1.80-7.70); Neutrophils % (A) 91.7 %; Platelet Count 146 10*3/uL (140-440); RBC 3.56 10*6/uL (4.10-5.20); RDW 13.9 % (11.5-14.5); WBC 21.78 10*3/uL (4.50-10.00)
--- NOTE | 2024-10-01 09:50 | CT ---
EXAMINATION TYPE: CT brain wo con DATE OF EXAM: 10/01/2024 8:43 AM COMPARISON: 09/29/2024.. CLINICAL INDICATION: Female, 84 years old with history of dysarthria with confusion r/o acute cva, dy sarthria with confusion r/o acute cva TECHNIQUE: Brain: Axial CT images of the brain were obtained with coronal and sagittal reformats created and rev iewed. Contrast used: None. Oral contrast used: None. CT DLP: 1186.4 mGycm, Automated exposure control for dose reduction was used. FINDINGS: Brain: Extra-axial spaces: No abnormal extra-axial fluid collections. Ventricular system: Dilatation in proportion to cerebral atrophy. Cerebral parenchyma: Cerebral atrophy. No acute intraparenchymal hemorrhage or mass effect. The alvarez -white junction is well differentiated. Scattered hypoattenuating areas are seen within the white mat ter. Cerebellum: Unremarkable. Mass effect: No evidence of midline shift. Intracranial vasculature: Atherosclerotic calcifications of the intracranial vessels. Soft tissues: Normal. Calvarium/osseous structures: No depressed skull fracture. Paranasal sinuses and mastoid air cells: Mild scattered paranasal sinus disease. Visualized orbits: Orbital contents are intact. IMPRESSION: 1. No acute intracranial process. 2. Nonspecific white matter changes, likely secondary to chronic small vessel ischemic disease. [facility], , 10/01/2024 9:48 AM
[2024-10-01 09:56] LABS: ALT 21 U/L (4-34); AST 24 U/L (14-36); African American GFR (CKD) 26 (>60 ml/min/1.73 sqM); Alkaline Phosphatase 146 U/L (38-126); Anion Gap 6 mmol/L; Calcium 6.6 mg/dL (8.4-10.2); Carbon Dioxide 32 mmol/L (22-30); Chloride 101 mmol/L (98-107); Glucose 127 mg/dL (74-99); Magnesium 1.7 mg/dL (1.6-2.3); Non-African American GFR(CKD) 23 (>60 ml/min/1.73 sqM); Potassium 2.8 mmol/L (3.5-5.1); Sodium 139 mmol/L (137-145); Total Bilirubin 1.2 mg/dL (0.2-1.3)
[2024-10-01 10:19] LABS: Blood Urea Nitrogen 135 mg/dL (7-17)
--- NOTE | 2024-10-01 10:30 | P.PN ---
Subjective Patient is seen in follow-up for acute kidney injury. Renal function improving. Oral intake poor. On bicarb drip. Has been voiding. Vital signs are stable. General: No acute distress. HEENT: Head exam is unremarkable. LUNGS: No audible rhonchi or wheezes. HEART: Rate and Rhythm are regular. ABDOMEN: Nontender. EXTREMITITES: No edema. Objective - Vital Signs Vital signs: Vital Signs Temp 98.3 F 10/01/24 08:00 Pulse 80 10/01/24 08:00 Resp 17 10/01/24 08:00 BP 110/64 10/01/24 08:00 Pulse Ox 95 10/01/24 08:00 FiO2 Intake & Output 09/30/24 10/01/24 10/01/24 18:59 06:59 18:59 Weight 49.895 kg 47.5 kg Other: Voiding Method Toilet Toilet External Catheter - Labs CBC & Chem 7: 10/01/24 07:56 10/01/24 07:56 Labs: Abnormal Lab Results - Last 24 Hours (Table) 10/01/24 10/01/24 Range/Units 07:56 07:56 WBC 21.78 H (4.50-10.00) 10*3/uL RBC 3.56 L (4.10-5.20) 10*6/uL Hgb 11.0 L (12.0-15.0) g/dL Hct 30.5 L (37.2-46.3) % Immature Gran # 0.22 H (0.00-0.04) 10*3/uL Neutrophils # 19.96 H (1.80-7.70) 10*3/uL Lymphocytes # 0.85 L (0.90-5.00) 10*3/uL Potassium 2.8 L (3.5-5.1) mmol/L Carbon Dioxide 32 H (22-30) mmol/L BUN 135 H* (7-17) mg/dL Creatinine 1.97 H (0.52-1.04) mg/dL Glucose 127 H (74-99) mg/dL Calcium 6.6 L (8.4-10.2) mg/dL Alkaline Phosphatase 146 H (38-126) U/L Total Protein 5.0 L (6.3-8.2) g/dL Albumin 2.0 L (3.5-5.0) g/dL Microbiology - Last 24 Hours (Table) 09/29/24 23:10 Urine Culture - Final Urine,Voided 09/29/24 23:07 Blood Culture - Preliminary Blood Assessment and Plan Plan: Assessment: 1. Acute kidney injury secondary to ATN secondary to hypovolemia and hypotension. Creatinine 3.09 on admission and is 1.97 today. BUN trending do wn. Creatinine in February 2022 was 0.6. No hydronephrosis noted on kidney ultrasound. 2. A-fib with RVR status post Cardizem drip. 3. Metabolic acidosis secondary to acute kidney injury and IV fluids. Improved with bicarb drip. 4. UTI. Received Rocephin on admission. 5. Hypokalemia from poor intake and intracellular shifting from IV bicarb. Plan: Stop bicarb drip. Start normal saline at 100 cc an hour. Replace potassium. Follow-up echocardiogram. Avoid nephrotoxins. Continue to monitor renal function and urine output. Bladder scan negative for retention.
[2024-10-01] MEDS: POTASSIUM CHLORIDE ER 20 MEQ TAB.ER PO STA (11:11)
[2024-10-01] MEDS: SODIUM CHLORIDE 0.9% 1,000 ML IV SCH (11:18)
[2024-10-01 13:05] VITALS: BMI 17.9
--- NOTE | 2024-10-01 13:21 | P.PN ---
Subjective Progress Note Date: 10/01/24 I am following-up with the patient. Upon seeing the patient she wanted to be left alone and continue to sleep. Objective - Vital Signs Vital signs: Vital Signs Temp 98.3 F 10/01/24 08:00 Pulse 75 10/01/24 12:00 Resp 17 10/01/24 12:00 BP 105/64 10/01/24 12:00 Pulse Ox 95 10/01/24 12:00 FiO2 Intake & Output 09/30/24 10/01/24 10/01/24 18:59 06:59 18:59 Weight 49.895 kg 47.5 kg 47.5 kg Other: Voiding Method Toilet Toilet External Catheter - Exam General: Lying in bed and does not appear in acute distress. Neuro: Very limited. She is sleeping. Upon trying to wake up to cooperate for exam. She correctly stated her name and correctly stated she in the hospital. But then stated "leave me alone and I want to sleep" Some of the work-up during this hospital visit consisted of: On initial presentation her blood pressure was in 80's over 40's Patient is afebrile. wbc is 32K and is neutrophilic BUT is 196 and Creatnine is 3.09 Ammonia 43 Calcium is 7.0 and ionized calcium is 3.9 TSH is normal limits. U/A is leukocyte esterase is moderate, urine wbc is 48 and bacteria is occasional I reviewed the rest of lab work-up. CT head is reported as No acute intracranial hemorrhage, midline shift or mass effect. I personally reviewed CT head and agree with report. I also feel there is likely old stroke over the right boyd radiata region/external capsule. EKG: A-fib with RVR. Carotid duplex: <50% stenosis of the carotid bifurcation bilaterally. Routine EEG: Is abnormal. The background slowing is suggestive of mild to moderate encephalopathy. There is no focal slowing, epileptiform discharges or seizure on the EEG. Repeat CT head: No acute intracranial process. - Labs CBC & Chem 7: 10/01/24 07:56 10/01/24 07:56 Labs: Abnormal Lab Results - Last 24 Hours (Table) 10/01/24 10/01/24 Range/Units 07:56 07:56 WBC 21.78 H (4.50-10.00) 10*3/uL RBC 3.56 L (4.10-5.20) 10*6/uL Hgb 11.0 L (12.0-15.0) g/dL Hct 30.5 L (37.2-46.3) % Immature Gran # 0.22 H (0.00-0.04) 10*3/uL Neutrophils # 19.96 H (1.80-7.70) 10*3/uL Lymphocytes # 0.85 L (0.90-5.00) 10*3/uL Potassium 2.8 L (3.5-5.1) mmol/L Carbon Dioxide 32 H (22-30) mmol/L BUN 135 H* (7-17) mg/dL Creatinine 1.97 H (0.52-1.04) mg/dL Glucose 127 H (74-99) mg/dL Calcium 6.6 L (8.4-10.2) mg/dL Alkaline Phosphatase 146 H (38-126) U/L Total Protein 5.0 L (6.3-8.2) g/dL Albumin 2.0 L (3.5-5.0) g/dL Microbiology - Last 24 Hours (Table) 09/29/24 23:10 Urine Culture - Final Urine,Voided 09/29/24 23:07 Blood Culture - Preliminary Blood Assessment and Plan Assessment: This is an 84 y/o woman who presents to emergency department because of altered mental status and slurred speech. She was found to be hypotensive at her nursing facility. In our facility she was found to be in Acute renal failure with elevated ammonia. Altered mental status due to toxic-metabolic/uremic encephalopathy (has LUISA, elevated ammonia, hypotension and hypocalcemia)--mentation improving. EEG is negative for seizure or discharge. Reported episode of dysarthria probable due to above. But cannot rule out acute CVA especially with hx of A-fib Acute renal failure Hyperammonemia Hypotension Hypocalcemia Leukocytosis and patient is afebrile. Possible due to dehydration. R/O acute UTI History of dementia History of reported TIA but I feels she had old stroke over the right boyd radiata/external capsule region History of atrial fibrillation and is not on anticoagulation. Current EKG show A-fib with RVR History of reported alcoholism Plan: MRI Brain machine continues to be down so will consider MRI Brain once machine is functional if patient continues to have confusion to rule out acute to subacute stroke. Repeat CT head is unremarkable for acute process. Patient is on ASA 81mg daily and Lipitor 40mg qhs. 2D echo is ordered and pending. Cardiology team is consulted. Nephrology team is consulted Q4 hour neuro checks. Cardiac monitoring Will defer the rest of medical management to primary team and other specialist. Will follow-up with the patient sporadically. Dr. Lagunas will continue neurology service on 10/04/2024 A.M. Time with Patient: Less than 30
--- NOTE | 2024-10-01 14:13 | P.PN ---
Subjective Progress Note Date: 10/01/24 Reason for Consult (text): A-fib with RVR History of present illness: This is an 84-year-old with past medical history of dementia, alcohol abuse, TIAs. Patient presented to the hospital due to altered mental status. Patient resides at local shelter and was found to have a significant change in mental status as well as slurred speech and was brought into the hospital for further evaluation. Patient apparently was back to baseline mentation in the emergency center but was found to be in atrial fibrillation which is new for her. Patient was also found to be hypotensive. Blood pressure 107/56, heart rate 82, pulse ox 100% on room air. Patient is seen today in the emergency center waiting for a bed on the cardiac stepdown unit. Patient has been started on Cardizem drip currently at 5 mg/h and subcu heparin. Potassium and calcium been replaced. She is status post 2 L of IV fluid bolus -EKG: #1 atrial fibrillation 104 bpm, #2 sinus rhythm at 78 bpm. -Chest x-ray: Mild retrocardiac opacity. Correlate for pneumonia -CT brain: No acute process. -Renal ultrasound reveals no hydronephrosis. -Laboratory studies: Troponin negative x 2 WBC 32.2, hemoglobin 10.1. INR 1.2. Sodium 134, potassium 3.3, BUN 196, creatinine 3.09., Magnesium 2.2, alkaline phosphatase 165, ammonia 43. Calcium 7.0. Ionized calcium 3.9. Urinalysis pos itive for infection. -Home cardiac medications: Amlodipine 5 mg daily, aspirin 81 mg daily, atorvast atin 40 mg at bedtime, metoprolol succinate 50 mg daily. 10/01/2024 Patient seen today on the cardiac stepdown unit. Patient is more alert and is able to answer questions today. Patient remains in a sinus rhythm. Blood pressure 105/65, heart rate in the 70s and 80s, pulse ox 95% on room air. Rep eat blood work reveals WBC 21.7, hemoglobin 11, BUN 135, creatinine 1.9, potassium 2.8. Potassium has been replaced. Echocardiogram has been obtained and report is pending. Physical examination: Gen: This is an 84-year-old thin cachectic appearing female in no acute distress VS: reviewed HEENT: Head is atraumatic, normocephalic. Pupils equal, round. Sclerae is anicteric. NECK: Supple. No JVD. LUNGS: Clear to auscultation. No wheezes or rhonchi. No intercostal retractions. HEART: Regular rate and rhythm. 4/6 systolic murmur at the right border and apex. ABDOMEN: Soft No tenderness. EXTREMITIES: No pedal edema. No calf tenderness. NEUROLOGICAL: Patient is awake, alert and oriented. Assessment: New onset paroxysmal A-fib with RVR, converted to sinus rhythm Acute kidney injury Metabolic acidosis Leukocytosis, UTI Possible pneumonia Dementia Alcohol abuse TIAs Severe protein calorie malnutrition with BMI of 18 Patient is long-term resident at shelter Suspect aortic stenosis Plan: Continue patient's home cardiac medications, hold amlodipine due to hypotension Continue to hold amlodipine today Obtain 2-D echocardiogram and Doppler report Further recommendations to follow based upon clinical course Thank you kindly for this consultation. Nurse practitioner note has been reviewed, I agree with documented findings and plan of care. Patient was seen and examined. Objective - Vital Signs Vital signs: Vital Signs Temp 98.3 F 10/01/24 08:00 Pulse 75 10/01/24 12:00 Resp 17 10/01/24 12:00 BP 105/64 10/01/24 12:00 Pulse Ox 95 10/01/24 12:00 FiO2 Intake & Output 09/30/24 10/01/24 10/01/24 18:59 06:59 18:59 Weight 49.895 kg 47.5 kg 47.5 kg Other: Voiding Method Toilet Toilet External Catheter - Labs CBC & Chem 7: 10/01/24 07:56 10/01/24 07:56 Labs: Abnormal Lab Results - Last 24 Hours (Table) 10/01/24 10/01/24 Range/Units 07:56 07:56 WBC 21.78 H (4.50-10.00) 10*3/uL RBC 3.56 L (4.10-5.20) 10*6/uL Hgb 11.0 L (12.0-15.0) g/dL Hct 30.5 L (37.2-46.3) % Immature Gran # 0.22 H (0.00-0.04) 10*3/uL Neutrophils # 19.96 H (1.80-7.70) 10*3/uL Lymphocytes # 0.85 L (0.90-5.00) 10*3/uL Potassium 2.8 L (3.5-5.1) mmol/L Carbon Dioxide 32 H (22-30) mmol/L BUN 135 H* (7-17) mg/dL Creatinine 1.97 H (0.52-1.04) mg/dL Glucose 127 H (74-99) mg/dL Calcium 6.6 L (8.4-10.2) mg/dL Alkaline Phosphatase 146 H (38-126) U/L Total Protein 5.0 L (6.3-8.2) g/dL Albumin 2.0 L (3.5-5.0) g/dL Microbiology - Last 24 Hours (Table) 09/29/24 23:10 Urine Culture - Final Urine,Voided 09/29/24 23:07 Blood Culture - Preliminary Blood
--- NOTE | 2024-10-01 18:16 | P.PN ---
Progress Note - Text Progress Note Date: 10/01/24 Chief Complaint: Altered mentation 84-year-old patient, brought in by the EMS to the ER. [facility] [place]. Per the EMS report the nurse reported that patient lethargic low blood pressure slurred speech refusing to eat and drink. Symptoms started about 7 AM yesterday. Patient had refused transport but patient's guardian requested transport for further evaluation. Initial vital signs per the EMS recorded were blood pressure 83/49 pulse 112 pulse ox 96% Patient not a very good historian. States that she has been took a fall. While she was using a walker. Normally has a bowel movement about once a week. She is appetite is okay. Denies any fever and chills. Rather forgetful. October 01: Admitted with acute delirium, acute kidney injury, metabolic acidosis. Sodium bicarbonate drip tubes changed to saline. Refusing food. Some improvement in creatinine from 2.7 down to 1.97. Low potassium being replaced. Active Medications Acetaminophen (Acetaminophen Tab 325 Mg Tab) 650 mg PO Q6H PRN PRN Reason: Fever and/ or Pain Al Hydroxide/Mg Hydroxide (Mag Hydrox/Al Hydrox/Simeth 30 Ml Cup) 15 ml PO Q6HR PRN PRN Reason: Indigestion Aspirin (Aspirin 81 Mg) 81 mg PO DAILY [facility] Last Admin: 10/01/24 09:12 Dose: 81 mg Atorvastatin Calcium (Atorvastatin 40 Mg Tab) 40 mg PO HS [facility] Last Admin: 09/30/24 19:57 Dose: 40 mg Enoxaparin Sodium (Enoxaparin 30 Mg/0.3 Ml Syringe) 30 mg SQ DAILY [facility] Last Admin: 10/01/24 09:12 Dose: 30 mg Ceftriaxone Sodium 2 gm/ (Sodium Chloride) 50 mls @ 100 mls/hr IVPB Q24HR [facility]; Protocol Last Admin: 10/01/24 09:12 Dose: 100 mls/hr Sodium Chloride (Saline 0.9%) 1,000 mls @ 100 mls/hr IV .Q10H [facility] Last Admin: 10/01/24 11:18 Dose: 100 mls/hr Metoprolol Succinate (Metoprolol Succinate (Er) 50 Mg Tab.Er.24h) 50 mg PO DAILY [facility] Last Admin: 10/01/24 09:12 Dose: 50 mg Mirtazapine (Mirtazapine 15 Mg Tab) 7.5 mg PO HS [facility] Last Admin: 09/30/24 19:57 Dose: 7.5 mg Naloxone HCl (Naloxone 0.4 Mg/Ml 1 Ml Vial) 0.2 mg IV Q2M PRN PRN Reason: Opioid Reversal Ondansetron HCl (Ondansetron 4 Mg/2 Ml Vial) 4 mg IVP Q8HR PRN PRN Reason: Nausea And Vomiting Social history: Resident of [facility]. Physical examination: VITAL SIGNS: 98.5, 78, 16, 101 x 57, 95% room air GENERAL:, thin built lying in bed tired appearing. EYES: Pupils equal. Conjunctiva danyelle l. HEENT: External appearance of nose and ears normal, oral cavity grossly normal. NECK: JVD not raised; masses not palpable. HEART: First and second heart sounds are normal; no edema. LUNGS: Respiratory rate normal; decreased breath sound. ABDOMEN: Soft, nontender, liver spleen not palpable, no masses palpable. PSYCH: Tired. Able answer simple questions. Limited historian MUSCULOSKELETAL:No Clubbing/cyanosis;muscles-grossly intact. Loss of muscle mass subcutaneous fat. Prominent bones OA. INVESTIGATIONS, reviewed in the clinical context: Renal ultrasound: Unremarkable. Gallstones October 01: White count 21.7 hemoglobin 11 platelets 146 potassium 2.8 bicarb 32 BUN 135 creatinine 1.97 albumin 2.0 September 29, 2024: White count 32.2 hemoglobin 10.1 platelets 149 sodium 134 potassium 3.3 BUN 196 creatinine 3.09 total bilirubin 1.7 ammonia 43 TSH 1.7 albumin 2.1 Troponin I 0.019, 0.019 UA: Trace protein, negative nitrate, moderate leukoesterase EKG tracing personally reviewed by me-atrial fibrillation, some ST-T wave changes. CT head without contrast: Age-related cerebral volume loss. Chest x-ray film personally reviewed by me-possibly chronic changes. Some hyperinflation Renal ultrasound: Unremarkable Assessment plan: - Acute delirium. Could be from underlying UTI and encephalopathy from kidney injury. Patient not a very good historian: Slow to respond - Persistent atrial fibrillation Toprol-XL Because of frailty falls and high risk of fall not a candidate for anticoagulation - Acute kidney injury. Rule out chronic component. Probable ATN: Slow improvement Follow I's and O's. IV fluids. Nephrology following Renal ultrasound: Unremarkable - Possible UTI IV ceftriaxone - Gallstones, asymptomatic - Metabolic acidosis from kidney injury: Corrected Sodium bicarbonate drip - Chronic insomnia Mirtazapine - Severe protein calorie malnutrition Ensure 1 can 3 times daily - Essential hypertension. Blood pressure running low likely because of kidney injury and antihypertensives. Hold off amlodipine. - Hypotension from volume loss and antihypertensives Hold off amlodipine. - Cognitive impairment - Chronic gait dysfunction, uses a walker - Primary osteoarthritis Pain medication as needed Continue with IV fluids. Follow renal function. Encourage oral intake. Prognosis guarded. Feeding with assistance. Because of poor oral intake. Change IV fluids to D5 for 5 Past Medical History Past Medical History: Atrial Fibrillation History of Any Multi-Drug Resistant Organisms: None Reported Past Psychological History: No Psychological Hx Reported Smoking Status: Never smoker Past Alcohol Use History: None Reported Past Drug Use History: None Reported
--- NOTE | 2024-10-01 18:43 | CA ---
Transthoracic Echo Report Name: Francine Elliott Age: 84 Gender: F : 1940 Exam Date: 10/01/2024 09:24 Exam Location: [place] Echo Ht (in): 64 Wt (lb): 110 Ordering Physician: Jayna Dash Attending/Referring Phys: [id number], Ekta Loft Worker Apprentice Shiela Cortes RDCS Procedure CPT: Indications: LVF Cardiac Hx: Technical Quality: Good Contrast 1: Total Dose (mL): Contrast 2: Total Dose (mL): MEASUREMENTS (Male / Female) Normal Values 2D ECHO LV Diastolic Diameter PLAX 3.6 cm 4.2 - 5.9 / 3.9 - 5.3 cm LV Systolic Diameter PLAX 2.3 cm IVS Diastolic Thickness 1.7 cm 0.6 - 1.0 / 0.6 - 0.9 cm LVPW Diastolic Thickness 1.6 cm 0.6 - 1.0 / 0.6 - 0.9 cm LV Relative Wall Thickness 0.9 RV Internal Dim ED PLAX 2.6 cm LVOT Diameter 1.8 cm LA Systolic Diameter LX 4.4 cm 3.0 - 4.0 / 2.7 - 3.8 cm LV Diastolic Volume MOD BP 36.4 cm??? 67 - 155 / 56 - 104 cm??? LV Systolic Volume MOD BP 13.5 cm??? - 58 / 19 - 49 cm??? LV Ejection Fraction MOD BP 62.9 % >= 55 % LV Cardiac Index MOD BP 1210.1 cm???/min???m??? LV Diastolic Volume MOD 4C 39.3 cm??? LV Systolic Volume MOD 4C 18.3 cm??? LV Ejection Fraction MOD 4C 53.4 % LV Cardiac Index MOD 4C 1109.6 cm???/min???m??? LV Diastolic Length 4C 5.7 cm LV Systolic Length 4C 4.8 cm LV Diastolic Volume MOD 2C 32.6 cm??? LV Systolic Volume MOD 2C 9.7 cm??? LV Ejection Fraction MOD 2C 70.3 % LV Cardiac Index MOD 2C 1211.7 cm???/min???m??? LV Diastolic Length 2C 6.2 cm LV Systolic Length 2C 5.0 cm LA Volume 53.9 cm??? 18 - 58 / 22 - 52 cm??? LA Volume Index 36.1 cm???/m??? 16 - 28 cm???/m??? M-MODE Aortic Root Diameter MM 2.4 cm LA Systolic Diameter MM 4.3 cm LA Ao Ratio MM 1.8 AV Cusp Separation MM 0.8 cm DOPPLER AV Peak Velocity 484.5 cm/s AV Peak Gradient 93.9 mmHg AV Mean Velocity 353.9 cm/s AV Mean Gradient 55.9 mmHg AV Velocity Time Integral 105.1 cm AI Peak Velocity 393.5 cm/s AI Peak Gradient 61.9 mmHg AI Pressure Half Time 758.5 ms LVOT Peak Velocity 98.5 cm/s LVOT Peak Gradient 3.9 mmHg LVOT Velocity Time Integral 23.1 cm LVOT Stroke Volume 58.5 cm??? LVOT Stroke Volume Index 38.6 ml/m??? LVOT Cardiac Index 3093.4 cm???/min???m??? AV Area Cont Eq vti 0.6 cm??? AV Area Cont Eq pk 0.5 cm??? MV Peak Velocity 142.7 cm/s MV Peak Gradient 8.1 mmHg MV Mean Velocity 86.2 cm/s MV Mean Gradient 3.3 mmHg MV Velocity Time Integral 35.1 cm MV Area PHT 2.1 cm??? Mitral E Point Velocity 66.8 cm/s Mitral A Point Velocity 110.2 cm/s Mitral E to A Ratio 0.6 MV Deceleration Time 357.3 ms TR Peak Velocity 271.0 cm/s TR Peak Gradient 29.4 mmHg Right Ventricular Systolic Press 32.8 mmHg FINDINGS Left Ventricle Left ventricular ejection fraction is estimated at 60-65 %. Severely increased left ventricular wall thickness. No obvious regional wall motion abnormalities. Left ventricular cavity size normal. Right Ventricle Normal right ventricular size and function. Right Atrium Mild right atrial dilatation. Left Atrium Severe left atrial dilatation. Mitral Valve Mild mitral stenosis. Mitral valve thickened. Severe mitral annular calcification. Moderate mitral regurgitation. Aortic Valve Severe aortic stenosis with a peak velocity of 4.84 m/s, peak gradient 94mmHg, mean gradient 56mmHg, and estimated aortic valve area of .5 cm???. Mild aortic regurgitation. Tricuspid Valve Structurally normal tricuspid valve. Mild tricuspid regurgitation. No tricuspid stenosis. Pulmonic Valve Structurally normal pulmonic valve. Mild pulmonic regurgitation. No pulmonic stenosis. Pericardium No pericardial or pleural effusion. Aorta Normal size aortic root and proximal ascending aorta. CONCLUSIONS Hyperdynamic LV. The EF is 60 to 65% Severe aortic stenosis with a mean gradient of 56 mmHg Previewed by: Dr. Perfecto Oshea MD (Electronically Signed) Final Date: 01 October 2024 18:41
[2024-10-01] MEDS: DEXTROSE 5%-0.45% NACL 1,000 ML IV SCH (20:32)
[2024-10-02 07:26] LABS: African American GFR (CKD) 36 (>60 ml/min/1.73 sqM); Anion Gap 7 mmol/L; Calcium 6.7 mg/dL (8.4-10.2); Carbon Dioxide 30 mmol/L (22-30); Chloride 108 mmol/L (98-107); Glucose 89 mg/dL (74-99); Magnesium 1.6 mg/dL (1.6-2.3); Non-African American GFR(CKD) 31 (>60 ml/min/1.73 sqM); Potassium 3.3 mmol/L (3.5-5.1); Sodium 145 mmol/L (137-145)
[2024-10-02 07:43] LABS: Blood Urea Nitrogen 110 mg/dL (7-17)
[2024-10-02] MEDS ORDERED: Potassium Replacement Protocol 1 EACH MISC MISCELLANE PRN (09:01)
--- NOTE | 2024-10-02 10:18 | P.PN ---
Subjective Patient is seen in follow-up for acute kidney injury. Renal function improving. Oral intake remains poor. On D5 half-normal saline. Has been voiding. Vital signs are stable. General: No acute distress. HEENT: Head exam is unremarkable. LUNGS: No audible rhonchi or wheezes. HEART: Rate and Rhythm are regular. ABDOMEN: Nontender. EXTREMITITES: No edema. Objective - Vital Signs Vital signs: Vital Signs Temp 98.5 F 10/02/24 08:00 Pulse 82 10/02/24 08:00 Resp 16 10/02/24 08:00 BP 108/63 10/02/24 08:00 Pulse Ox 95 10/02/24 08:00 FiO2 Intake & Output 10/01/24 10/02/24 10/02/24 18:59 06:59 18:59 Output Total 400 Balance -400 Weight 47.5 kg 49 kg Output: Urine 400 Other: Voiding Method External Catheter External Catheter External Catheter - Labs CBC & Chem 7: 10/01/24 07:56 10/02/24 06:10 Labs: Abnormal Lab Results - Last 24 Hours (Table) 10/01/24 10/01/24 10/02/24 Range/Units 07:56 17:29 06:10 Potassium 2.8 L 3.4 L 3.3 L (3.5-5.1) mmol/L Chloride 108 H (98-107) mmol/L Carbon Dioxide 32 H (22-30) mmol/L BUN 135 H* 110 H* (7-17) mg/dL Creatinine 1.97 H 1.51 H (0.52-1.04) mg/dL Glucose 127 H (74-99) mg/dL Calcium 6.6 L 6.7 L (8.4-10.2) mg/dL Alkaline Phosphatase 146 H (38-126) U/L Total Protein 5.0 L (6.3-8.2) g/dL Albumin 2.0 L (3.5-5.0) g/dL Microbiology - Last 24 Hours (Table) 09/29/24 23:07 Blood Culture - Preliminary Blood 09/29/24 23:10 Urine Culture - Final Urine,Voided Assessment and Plan Plan: Assessment: 1. Acute kidney injury secondary to ATN secondary to hypovolemia and hypotension. Creatinine 3.09 on admission and is 1.51 today. BUN trending down. Creatinine in February 2022 was 0.6. No hydronephrosis noted on kidney ultrasound. 2. A-fib with RVR status post Cardizem drip. 3. Metabolic acidosis secondary to acute kidney injury and IV fluids. Improved with bicarb drip. 4. UTI. On antibiotics. 5. Hypokalemia from poor intake and intracellular shifting from IV bicarb and poor intake. 6. Aortic stenosis. Plan: Maintain half-normal saline. Replace potassium and magnesium. Avoid nephrotoxins. Continue to monitor renal function and urine output. Bladder scan negative for retention.
[2024-10-02] MEDS: SODIUM CHLORIDE 0.9% 1,000 ML IV ONE ×2 (13:35→15:37)
[2024-10-02 15:15] LABS: Glucose,Whole Blood 152 mg/dL (70-110)
[2024-10-02 15:43] LABS: Basophils # (A) 0.06 10*3/uL (0.00-0.10); Basophils % (A) 0.5 %; Eosinophils # (A) 0.01 10*3/uL (0.04-0.35); Eosinophils % (A) 0.1 %; HCT 33.6 % (37.2-46.3); HGB 11.6 g/dL (12.0-15.0); Lymphocytes % (A) 3.2 %; MCH 31.4 pg (27.0-32.0); MCHC 34.5 g/dL (32.0-37.0); MCV 90.8 fL (80.0-97.0); Mean Platelet Volume 12.2 fL (9.5-12.2); Monocytes % (A) 1.6 %; Neutrophils # (A) 11.97 10*3/uL (1.80-7.70); Neutrophils % (A) 94.4 %; Platelet Count 185 10*3/uL (140-440); RDW 14.8 % (11.5-14.5); WBC 12.67 10*3/uL (4.50-10.00)
[2024-10-02] MEDS: AZITHROMYCIN 500 MG in SODIUM CHLORIDE 0.9% 250 ML IVPB STA (16:33)
[2024-10-02] MEDS ORDERED: VANCOMYCIN IV PER PHARMACY 1 EACH MISC MISCELLANE PRN (16:34)
[2024-10-02] MEDS: MAGNESIUM SULFATE-D5W PMX 1 GM in DEXTROSE/WATER 1 100ML.BAG IVPB SCH (16:36)
[2024-10-02] MEDS: POTASSIUM CHLORIDE ER 20 MEQ TAB.ER PO SCH (17:08)
[2024-10-02] MEDS: VANCOMYCIN 1,000 MG in SODIUM CHLORIDE 0.9% 250 ML IVPB ONE (17:09)
--- NOTE | 2024-10-02 18:19 | P.PN ---
Subjective Progress Note Date: 10/02/24 This is an 84-year-old with past medical history of dementia, alcohol abuse, TIAs. Patient presented to the hospital due to altered mental status. Patient resides [facility] and was found to have a significant change in mental status as well as slurred speech and was brought into the hospital for further evaluation. Patient apparently was back to baseline mentation in the emergency center but was found to be in atrial fibrillation which is new for her. Patient was also found to be hypotensive. Blood pressure 107/56, heart rate 82, pulse ox 100% on room air. Patient is seen today in the emergency center waiting for a bed on the cardiac stepdown unit. Patient has been started on Cardizem drip currently at 5 mg/h and subcu heparin. Potassium and calcium been replaced. She is status post 2 L of IV fluid bolus -EKG: #1 atrial fibrillation 104 bpm, #2 sinus rhythm at 78 bpm. -Chest x-ray: Mild retrocardiac opacity. Correlate for pneumonia -CT brain: No acute process. -Renal ultrasound reveals no hydronephrosis. -Laboratory studies: Troponin negative x 2 WBC 32.2, hemoglobin 10.1. INR 1.2. Sodium 134, potassium 3.3, BUN 196, creatinine 3.09., Magnesium 2.2, alkaline phosphatase 165, ammonia 43. Calcium 7.0. Ionized calcium 3.9. Urinalysis positive for infection. -Home cardiac medications: Amlodipine 5 mg daily, aspirin 81 mg daily, atorvastatin 40 mg at bedtime, metoprolol succinate 50 mg daily. 10/01/2024 Patient seen today on the cardiac stepdown unit. Patient is more alert and is able to answer questions today. Patient remains in a sinus rhythm. Blood pr essure 105/65, heart rate in the 70s and 80s, pulse ox 95% on room air. Repeat blood work reveals WBC 21.7, hemoglobin 11, BUN 135, creatinine 1.9, potassium 2.8. Potassium has been replaced. Echocardiogram has been obtained and report is pending. 10/02/2024 BP 70/49 heart rate 95 Telemetry shows sinus rhythm heart rate 95 bpm Labs Hb 11, BUN 110, creatinine 1.5 Echo shows EF 60 to 65%, hyperdynamic LV, severe aortic stenosis mean gradient of 56 mmHg, severe LVH Physical examination: Gen: This is an 84-year-old thin cachectic appearing female in no acute distress VS: reviewed HEENT: Head is atraumatic, normocephalic. Pupils equal, round. Sclerae is anicteric. NECK: Supple. No JVD. LUNGS: Clear to auscultation. No wheezes or rhonchi. No intercostal retractions. HEART: Regular rate and rhythm. 4/6 systolic murmur at the right border and apex. ABDOMEN: Soft No tenderness. EXTREMITIES: No pedal edema. No calf tenderness. NEUROLOGICAL: Patient is awake, alert and oriented. Assessment: Severe aortic stenosis New onset paroxysmal A-fib with RVR, converted to sinus rhythm Acute kidney injury Metabolic acidosis Leukocytosis, UTI Possible pneumonia Dementia Alcohol abuse TIAs Severe protein calorie malnutrition with BMI of 18 [facility] Plan: Continue patient's home cardiac medications, hold amlodipine due to hypotension Continue to hold amlodipine today Outpatient aortic stenosis workup Objective - Vital Signs Vital signs: Vital Signs Temp 98.5 F 10/02/24 08:00 Pulse 72 10/02/24 14:00 Resp 16 10/02/24 14:00 BP 70/48 10/02/24 16:32 Pulse Ox 96 10/02/24 13:36 FiO2 Intake & Output 10/01/24 10/02/24 10/02/24 18:59 06:59 18:59 Output Total 400 Balance -400 Weight 47.5 kg 49 kg Output: Urine 400 Other: Voiding Method External Catheter External Catheter External Catheter - Labs CBC & Chem 7: 10/02/24 14:50 10/02/24 06:10 Labs: Abnormal Lab Results - Last 24 Hours (Table) 10/01/24 10/02/24 10/02/24 Range/Units 17:29 06:10 14:50 WBC 12.67 H (4.50-10.00) 10*3/uL RBC 3.70 L (4.10-5.20) 10*6/uL Hgb 11.6 L (12.0-15.0) g/dL Hct 33.6 L (37.2-46.3) % Neutrophils # 11.97 H (1.80-7.70) 10*3/uL Lymphocytes # 0.40 L (0.90-5.00) 10*3/uL Eosinophils # 0.01 L (0.04-0.35) 10*3/uL Potassium 3.4 L 3.3 L (3.5-5.1) mmol/L Chloride 108 H (98-107) mmol/L BUN 110 H* (7-17) mg/dL Creatinine 1.51 H (0.52-1.04) mg/dL POC Glucose (mg/dL) (70-110) mg/dL Calcium 6.7 L (8.4-10.2) mg/dL 10/02/24 Range/Units 15:13 WBC (4.50-10.00) 10*3/uL RBC (4.10-5.20) 10*6/uL Hgb (12.0-15.0) g/dL Hct (37.2-46.3) % Neutrophils # (1.80-7.70) 10*3/uL Lymphocytes # (0.90-5.00) 10*3/uL Eosinophils # (0.04-0.35) 10*3/uL Potassium (3.5-5.1) mmol/L Chloride (98-107) mmol/L BUN (7-17) mg/dL Creatinine (0.52-1.04) mg/dL POC Glucose (mg/dL) 152 H (70-110) mg/dL Calcium (8.4-10.2) mg/dL Microbiology - Last 24 Hours (Table) 09/29/24 23:07 Blood Culture - Preliminary Blood
[2024-10-02] MEDS: PIPERACILLIN-TAZOBACTAM 3.375 GM in SODIUM CHLORIDE 0.9% 100 ML IVPB STA (19:38)
[2024-10-03 07:17] LABS: African American GFR (CKD) 29 (>60 ml/min/1.73 sqM); Anion Gap 14 mmol/L; Blood Urea Nitrogen 91 mg/dL (7-17); Carbon Dioxide 20 mmol/L (22-30); Chloride 108 mmol/L (98-107); Glucose 193 mg/dL (74-99); Magnesium 1.9 mg/dL (1.6-2.3); Non-African American GFR(CKD) 25 (>60 ml/min/1.73 sqM); Sodium 142 mmol/L (137-145)
[2024-10-03 07:37] LABS: Calcium 6.3 mg/dL (8.4-10.2)
[2024-10-03] MEDS: POTASSIUM CHLORIDE 10 MEQ in WATER FOR INJECTION 1 100ML.BAG IVPB SCH (10:34)
--- NOTE | 2024-10-03 11:10 | P.PN ---
Subjective Patient is seen in follow-up for acute kidney injury. Renal function slightly worse today. BUN trending down. Oral intake remains poor. On D5 half-normal saline. Has been voiding. Vital signs are stable. General: No acute distress. HEENT: Head exam is unremarkable. LUNGS: No audible rhonchi or wheezes. HEART: Rate and Rhythm are regular. ABDOMEN: Nontender. EXTREMITITES: No edema. Objective - Vital Signs Vital signs: Vital Signs Temp 98.0 F 10/03/24 03:05 Pulse 96 10/03/24 03:05 Resp 14 10/03/24 03:05 BP 87/51 10/03/24 03:05 Pulse Ox 92 L 10/03/24 03:05 FiO2 Intake & Output 10/02/24 10/03/24 10/03/24 18:59 06:59 18:59 Weight 49 kg Other: Voiding Method External Catheter External Catheter - Labs CBC & Chem 7: 10/02/24 14:50 10/03/24 05:58 Labs: Abnormal Lab Results - Last 24 Hours (Table) 10/02/24 10/02/24 10/03/24 Range/Units 14:50 15:13 05:58 WBC 12.67 H (4.50-10.00) 10*3/uL RBC 3.70 L (4.10-5.20) 10*6/uL Hgb 11.6 L (12.0-15.0) g/dL Hct 33.6 L (37.2-46.3) % Neutrophils # 11.97 H (1.80-7.70) 10*3/uL Lymphocytes # 0.40 L (0.90-5.00) 10*3/uL Eosinophils # 0.01 L (0.04-0.35) 10*3/uL Potassium 3.0 L (3.5-5.1) mmol/L Chloride 108 H (98-107) mmol/L Carbon Dioxide 20 L (22-30) mmol/L BUN 91 H (7-17) mg/dL Creatinine 1.81 H (0.52-1.04) mg/dL Glucose 193 H (74-99) mg/dL POC Glucose (mg/dL) 152 H (70-110) mg/dL Calcium 6.3 L* (8.4-10.2) mg/dL Microbiology - Last 24 Hours (Table) 09/29/24 23:07 Blood Culture - Preliminary Blood Assessment and Plan Plan: Assessment: 1. Acute kidney injury secondary to ATN secondary to hypovolemia and hy potension. Creatinine 3.09 on admission and improved to 1.5 -1.81 today. BUN trending down. Creatinine in February 2022 was 0.6. No hydronephrosis noted on kidney ultrasound. 2. A-fib with RVR status post Cardizem drip. 3. Metabolic acidosis secondary to acute kidney injury and IV fluids. 4. UTI. On antibiotics. 5. Hypokalemia from poor intake and zosyn causing renal potassium wasting. 6. Aortic stenosis. Plan: Maintain half-normal saline. Potassium being replaced. 1 g IV calcium gluconate today. Check ionized calcium level. Avoid nephrotoxins. Continue to monitor renal function and urine output. Bladder scan negative for retention. Amlodipine discontinued by cardiology. Consider midodrine if blood pressure remains low.
[2024-10-03] MEDS: SODIUM BICARB 8.4% 50 ML SYR (1 MEQ/ML) IV STA (11:56)
[2024-10-03] MEDS: CALCIUM GLUCONATE IN NACL 1 GM in SALINE 1 100ML.BAG IVPB ONE (11:56)
[2024-10-03] MEDS: VANCOMYCIN 1,000 MG in SODIUM CHLORIDE 0.9% 250 ML IVPB ONE (13:16)
[2024-10-03] MEDS: METOPROLOL TARTRATE 5 MG/5 ML VIAL IVP SCH (15:47)
[2024-10-03 16:03] LABS: Glucose,Whole Blood 132 mg/dL (70-110)
--- NOTE | 2024-10-03 16:06 | P.PN ---
Subjective Progress Note Date: 10/02/24 84-year-old patient, brought in by the EMS to the ER. Resident of [facility]. Per the EMS report the nurse reported that patient lethargic low blood pressure slurred speech refusing to eat and drink. Symptoms started about 7 AM yesterday. Patient had refused transport but patient's guardian requested transport for further evaluation. Initial vital signs per the EMS recorded were blood pressure 83/49 pulse 112 pulse ox 96% Patient not a very good historian. States that she has been took a fall. While she was using a walker. Normally has a bowel movement about once a week. She is appetite is okay. Denies any fever and chills. Rather forgetful. October 01: Admitted with acute delirium, acute kidney injury, metabolic acidosis. Sodium bicarbonate drip tubes changed to saline. Refusing food. Some improvement in creatinine from 2.7 down to 1.97. Low potassium being replaced. 10/02/2024 Patient is lethargic and weak. Unable to communicate. Unable to take any oral intake. Currently on IV hydration with D5 half-normal saline. Patient is also hypotensive and required 1 L fluid bolus. Laboratory data showed WBC 12.6 hemoglobin 11.6 and platelets 185 sodium 145 potassium 3.5 chloride 108 bicarb is 30 BUN 110 and creatinine 1.51 and magnesium 1.6. Active Medications Acetaminophen (Acetaminophen Tab 325 Mg Tab) 650 mg PO Q6H PRN PRN Reason: Fever and/ or Pain Al Hydroxide/Mg Hydroxide (Mag Hydrox/Al Hydrox/Simeth 30 Ml Cup) 15 ml PO Q6HR PRN PRN Reason: Indigestion Aspirin (Aspirin 81 Mg) 81 mg PO DAILY NATY Last Admin: 10/01/24 09:12 Dose: 81 mg Atorvastatin Calcium (Atorvastatin 40 Mg Tab) 40 mg PO HS NATY Last Admin: 09/30/24 19:57 Dose: 40 mg Enoxaparin Sodium (Enoxaparin 30 Mg/0.3 Ml Syringe) 30 mg SQ DAILY NATY Last Admin: 10/01/24 09:12 Dose: 30 mg Ceftriaxone Sodium 2 gm/ (Sodium Chloride) 50 mls @ 100 mls/hr IVPB Q24HR NATY; Protocol Last Admin: 10/01/24 09:12 Dose: 100 mls/hr Sodium Chloride (Saline 0.9%) 1,000 mls @ 100 mls/hr IV .Q10H [facility] Last Admin: 10/01/24 11:18 Dose: 100 mls/hr Metoprolol Succinate (Metoprolol Succinate (Er) 50 Mg Tab.Er.24h) 50 mg PO DAILY [facility] Last Admin: 10/01/24 09:12 Dose: 50 mg Mirtazapine (Mirtazapine 15 Mg Tab) 7.5 mg PO HS [facility] Last Admin: 09/30/24 19:57 Dose: 7.5 mg Naloxone HCl (Naloxone 0.4 Mg/Ml 1 Ml Vial) 0.2 mg IV Q2M PRN PRN Reason: Opioid Reversal Ondansetron HCl (Ondansetron 4 Mg/2 Ml Vial) 4 mg IVP Q8HR PRN PRN Reason: Nausea And Vomiting Social history: Resident of [facility]. Physical examination: VITAL SIGNS: 98.5, 78, 16, 101 x 57, 95% room air GENERAL:, thin built lying in bed tired appearing. EYES: Pupils equal. Conjunctiva danyelle l. HEENT: External appearance of nose and ears normal, oral cavity grossly normal. NECK: JVD not raised; masses not palpable. HEART: First and second heart sounds are normal; no edema. LUNGS: Respiratory rate normal; decreased breath sound. ABDOMEN: Soft, nontender, liver spleen not palpable, no masses palpable. PSYCH: Tired. Able answer simple questions. Limited historian MUSCULOSKELETAL:No Clubbing/cyanosis;muscles-grossly intact. Loss of muscle mass subcutaneous fat. Prominent bones OA. INVESTIGATIONS, reviewed in the clinical context: Renal ultrasound: Unremarkable. Gallstones October 01: White count 21.7 hemoglobin 11 platelets 146 potassium 2.8 bicarb 32 BUN 135 creatinine 1.97 albumin 2.0 September 29, 2024: White count 32.2 hemoglobin 10.1 platelets 149 sodium 134 potassium 3.3 BUN 196 creatinine 3.09 total bilirubin 1.7 ammonia 43 TSH 1.7 albumin 2.1 Troponin I 0.019, 0.019 UA: Trace protein, negative nitrate, moderate leukoesterase EKG tracing personally reviewed by me-atrial fibrillation, some ST-T wave changes. CT head without contrast: Age-related cerebral volume loss. Chest x-ray film personally reviewed by me-possibly chronic changes. Some hyperinflation Renal ultrasound: Unremarkable Assessment plan: -Acute metabolic encephalopathy Acute delirium. Could be from underlying UTI and encephalopathy from kidney injury. Patient not a very good historian: Slow to respond - Persistent atrial fibrillation - Severe aortic stenosis Continue with Toprol-XL Because of frailty falls and high risk of fall not a candidate for anticoagulation - Acute kidney injury. Rule out chronic component. Probable ATN: Slow i mprovement Follow I's and O's. IV fluids. Nephrology following Renal ultrasound: Unremarkable - Possible UTI IV ceftriaxone. IV hydration with D5 half-normal saline. Patient still hypotensive. Urine cultures showed no growth in 24 hours. Antibiotics changed to Zosyn and vancomycin since patient is continues to be hypoxic. CT of the abdomen pelvis was obtained. - Gallstones, asymptomatic - Metabolic acidosis from kidney injury: Corrected Patient was on sodium bicarbonate drip - Chronic insomnia Mirtazapine - Severe protein calorie malnutrition Ensure 1 can 3 times daily - Essential hypertension. Blood pressure running low likely because of kidney injury and antihypertensives. Hold off amlodipine. - Hypotension from volume loss and antihypertensives Hold off amlodipine. - Cognitive impairment - Chronic gait dysfunction, uses a walker - Primary osteoarthritis Pain medication as needed Continue with IV fluids. Follow renal function. Encourage oral intake. Prognosis guarded. CODE STATUS DNR/DNI. Upon discussion with her son regarding her medical condition and continues to be hypotensive and encephalopathic. Objective - Vital Signs Vital signs: Vital Signs Temp 98.5 F 10/02/24 08:00 Pulse 72 10/02/24 14:00 Resp 16 10/02/24 14:00 BP 90/53 10/02/24 15:47 Pulse Ox 96 10/02/24 13:36 FiO2 Intake & Output 10/01/24 10/02/24 10/02/24 18:59 06:59 18:59 Output Total 400 Balance -400 Weight 47.5 kg 49 kg Output: Urine 400 Other: Voiding Method External Catheter External Catheter External Catheter - Labs CBC & Chem 7: 10/02/24 14:50 10/03/24 05:58 Labs: Abnormal Lab Results - Last 24 Hours (Table) 10/01/24 10/02/24 10/02/24 Range/Units 17:29 06:10 14:50 WBC 12.67 H (4.50-10.00) 10*3/uL RBC 3.70 L (4.10-5.20) 10*6/uL Hgb 11.6 L (12.0-15.0) g/dL Hct 33.6 L (37.2-46.3) % Potassium 3.4 L 3.3 L (3.5-5.1) mmol/L Chloride 108 H (98-107) mmol/L BUN 110 H* (7-17) mg/dL Creatinine 1.51 H (0.52-1.04) mg/dL POC Glucose (mg/dL) (70-110) mg/dL Calcium 6.7 L (8.4-10.2) mg/dL 10/02/24 Range/Units 15:13 WBC (4.50-10.00) 10*3/uL RBC (4.10-5.20) 10*6/uL Hgb (12.0-15.0) g/dL Hct (37.2-46.3) % Potassium (3.5-5.1) mmol/L Chloride (98-107) mmol/L BUN (7-17) mg/dL Creatinine (0.52-1.04) mg/dL POC Glucose (mg/dL) 152 H (70-110) mg/dL Calcium (8.4-10.2) mg/dL Microbiology - Last 24 Hours (Table) 09/29/24 23:07 Blood Culture - Preliminary Blood
--- NOTE | 2024-10-03 16:13 | P.PN ---
Subjective Progress Note Date: 10/03/24 84-year-old patient, brought in by the EMS to the ER. Resident of [facility]. Per the EMS report the nurse reported that patient lethargic low blood pressure slurred speech refusing to eat and drink. Symptoms started about 7 AM yesterday. Patient had refused transport but patient's guardian requested transport for further evaluation. Initial vital signs per the EMS recorded were blood pressure 83/49 pulse 112 pulse ox 96% Patient not a very good historian. States that she has been took a fall. While she was using a walker. Normally has a bowel movement about once a week. She is appetite is okay. Denies any fever and chills. Rather forgetful. October 01: Admitted with acute delirium, acute kidney injury, metabolic acidosis. Sodium bicarbonate drip tubes changed to saline. Refusing food. Some improvement in creatinine from 2.7 down to 1.97. Low potassium being replaced. 10/02/2024 Patient is lethargic and weak. Unable to communicate. Unable to take any oral intake. Currently on IV hydration with D5 half-normal saline. Patient is also hypotensive and required 1 L fluid bolus. Laboratory data showed WBC 12.6 hemoglobin 11.6 and platelets 185 sodium 145 potassium 3.5 chloride 108 bicarb is 30 BUN 110 and creatinine 1.51 and magnesium 1.6. 10/03/2024 Patient seems to be more awake today. Still lethargic. Requiring oxygen at 2 L per via nasal cannula. Blood pressure is 106/64. Heart rate 104 patient has been afebrile. Potassium 3.0 which is being replaced. Patient is being continued on antibiotics in the form of ceftriaxone. Otherwise patient is not taking anything by mouth. Will change metoprolol to IV. Nephrology and cardiology is on board. Laboratory data showed sodium 142 potassium 3.0 chloride 108 bicarb is 20 BUN 91 and creatinine 1.81 and blood sugar 193 and calcium 6.3. Active Medications Acetaminophen (Acetaminophen Tab 325 Mg Tab) 650 mg PO Q6H PRN PRN Reason: Fever and/ or Pain Al Hydroxide/Mg Hydroxide (Mag Hydrox/Al Hydrox/Simeth 30 Ml Cup) 15 ml PO Q6HR PRN PRN Reason: Indigestion Aspirin (Aspirin 81 Mg) 81 mg PO DAILY NATY Last Admin: 10/03/24 10:36 Dose: Not Given Atorvastatin Calcium (Atorvastatin 40 Mg Tab) 40 mg PO HS [facility] Last Admin: 10/02/24 19:34 Dose: Not Given Enoxaparin Sodium (Enoxaparin 30 Mg/0.3 Ml Syringe) 30 mg SQ DAILY [facility] Last Admin: 10/03/24 10:28 Dose: 30 mg Ceftriaxone Sodium 2 gm/ (Sodium Chloride) 50 mls @ 100 mls/hr IVPB Q24HR [facility]; Protocol Last Admin: 10/03/24 10:26 Dose: 100 mls/hr Dextrose/Sodium Chloride (Dextrose 5%-1/2ns Iv Soln) 1,000 mls @ 100 mls/hr IV .Q10H [facility] Last Admin: 10/03/24 11:32 Dose: 100 mls/hr Metoprolol Tartrate (Metoprolol Tartrate 5 Mg/5 Ml Vial) 5 mg IVP DAILY [facility] Last Admin: 10/03/24 15:47 Dose: 5 mg Mirtazapine (Mirtazapine 15 Mg Tab) 7.5 mg PO HS [facility] Last Admin: 10/02/24 19:34 Dose: Not Given Miscellaneous Information (Potassium Replacement Protocol 1 Each Misc) 1 each MISCELLANE DAILY PRN; Protocol PRN Reason: Per Protocol Naloxone HCl (Naloxone 0.4 Mg/Ml 1 Ml Vial) 0.2 mg IV Q2M PRN PRN Reason: Opioid Reversal Ondansetron HCl (Ondansetron 4 Mg/2 Ml Vial) 4 mg IVP Q8HR PRN PRN Reason: Nausea And Vomiting Social history: Resident of [facility]. Physical examination: VITAL SIGNS: 98.5, 78, 16, 101 x 57, 95% room air GENERAL:, thin built lying in bed tired appearing. EYES: Pupils equal. Conjunctiva danyelle l. HEENT: External appearance of nose and ears normal, oral cavity grossly normal. NECK: JVD not raised; masses not palpable. HEART: First and second heart sounds are normal; no edema. LUNGS: Respiratory rate normal; decreased breath sound. ABDOMEN: Soft, nontender, liver spleen not palpable, no masses palpable. PSYCH: Tired. Able answer simple questions. Limited historian MUSCULOSKELETAL:No Clubbing/cyanosis;muscles-grossly intact. Loss of muscle mass subcutaneous fat. Prominent bones OA. INVESTIGATIONS, reviewed in the clinical context: Renal ultrasound: Unremarkable. Gallstones UA: Trace protein, negative nitrate, moderate leukoesterase EKG tracing personally reviewed by me-atrial fibrillation, some ST-T wave changes. CT head without contrast: Age-related cerebral volume loss. Chest x-ray film personally reviewed by me-possibly chronic changes. Some hyperinflation Renal ultrasound: Unremarkable Assessment plan: -Acute metabolic encephalopathy Acute delirium. Could be from underlying UTI and encephalopathy from kidney injury. Patient not a very good historian: Slow to respond - Persistent atrial fibrillation - Severe aortic stenosis Continue with Toprol-XL Because of frailty falls and high risk of fall not a candidate for anticoagulation - Acute kidney injury. Rule out chronic component. Probable ATN: Slow improvem ent Follow I's and O's. IV fluids. Nephrology following Renal ultrasound: Unremarkable - Possible UTI IV ceftriaxone. IV hydration with D5 half-normal saline. Blood pressure improved today. Urine cultures showed no growth in 24 hours. Patient was given a dose of vancomycin and Zosyn. - Gallstones, asymptomatic - Metabolic acidosis from kidney injury: Corrected Patient was on sodium bicarbonate drip - Chronic insomnia Mirtazapine - Severe protein calorie malnutrition Ensure 1 can 3 times daily - Essential hypertension. Blood pressure running low likely because of kidney injury and antihypertensives. Hold off amlodipine. - Hypotension from volume loss and antihypertensives Hold off amlodipine. - Cognitive impairment - Chronic gait dysfunction, uses a walker - Primary osteoarthritis Pain medication as needed Continue with IV fluids. Follow renal function. Encourage oral intake. Prognosis guarded. CODE STATUS DNR/DNI. Upon discussion with her son regarding her medical condition and continues to be hypotensive and encephalopathic. Objective - Vital Signs Vital signs: Vital Signs Temp 97.6 F 10/03/24 12:00 Pulse 104 H 10/03/24 12:00 Resp 16 10/03/24 12:00 BP 106/64 10/03/24 12:00 Pulse Ox 94 L 10/03/24 12:00 FiO2 Intake & Output 10/02/24 10/03/24 10/03/24 18:59 06:59 18:59 Weight 49 kg Other: Voiding Method External Catheter External Catheter External Catheter - Labs CBC & Chem 7: 10/02/24 14:50 10/03/24 05:58 Labs: Abnormal Lab Results - Last 24 Hours (Table) 06/10/03/24 10/03/24 Range/Units 14:50 05:58 16:02 Neutrophils # 11.97 H (1.80-7.70) 10*3/uL Lymphocytes # 0.40 L (0.90-5.00) 10*3/uL Eosinophils # 0.01 L (0.04-0.35) 10*3/uL Potassium 3.0 L (3.5-5.1) mmol/L Chloride 108 H (98-107) mmol/L Carbon Dioxide 20 L (22-30) mmol/L BUN 91 H (7-17) mg/dL Creatinine 1.81 H (0.52-1.04) mg/dL Glucose 193 H (74-99) mg/dL POC Glucose (mg/dL) 132 H (70-110) mg/dL Calcium 6.3 L* (8.4-10.2) mg/dL Microbiology - Last 24 Hours (Table) 09/29/24 23:07 Blood Culture - Preliminary Blood
--- NOTE | 2024-10-03 16:49 | XR ---
EXAMINATION TYPE: XR chest 1V DATE OF EXAM: 10/03/2024 4:42 PM COMPARISON: Chest radiograph 09/29/2024. CLINICAL INDICATION: Female, 84 years old with history of A-fib with RVR; [facility] TECHNIQUE: XR chest 1V Frontal view of the chest. FINDINGS: Lungs/Pleura: [id number] size right pleural effusion with adjacent right lower lobe compressiv e atelectasis. There is mild right lung volume loss. No sizable left pleural effusion. No pneumothora x. Pulmonary vascularity: Unremarkable. Heart/mediastinum: Cardiomediastinal silhouette is prominent in size. Musculoskeletal: No acute osseous pathology. Other findings: None IMPRESSION: Cardiomegaly and [id number] right pleural effusion with adjacent lobe compressive atelectasis. [facility], , 10/03/2024 4:47 PM
--- NOTE | 2024-10-03 18:51 | P.PN ---
Subjective Progress Note Date: 10/03/24 This is an 84-year-old with past medical history of dementia, alcohol abuse, TIAs. Patient presented to the hospital due to altered mental status. Patient resides at local skilled nursing and was found to have a significant change in mental status as well as slurred speech and was brought into the hospital for further evaluation. Patient apparently was back to baseline mentation in the emergency center but was found to be in atrial fibrillation which is new for her. Patient was also found to be hypotensive. Blood pressure 107/56, heart rate 82, pulse ox 100% on room air. Patient is seen today in the emergency center waiting for a bed on the cardiac stepdown unit. Patient has been started on Cardizem drip currently at 5 mg/h and subcu heparin. Potassium and calcium been replaced. She is status post 2 L of IV fluid bolus -EKG: #1 atrial fibrillation 104 bpm, #2 sinus rhythm at 78 bpm. -Chest x-ray: Mild retrocardiac opacity. Correlate for pneumonia -CT brain: No acute process. -Renal ultrasound reveals no hydronephrosis. -Laboratory studies: Troponin negative x 2 WBC 32.2, hemoglobin 10.1. INR 1.2. Sodium 134, potassium 3.3, BUN 196, creatinine 3.09., Magnesium 2.2, alkaline phosphatase 165, ammonia 43. Calcium 7.0. Ionized calcium 3.9. Urinalysis positive for infection. -Home cardiac medications: Amlodipine 5 mg daily, aspirin 81 mg daily, atorvastatin 40 mg at bedtime, metoprolol succinate 50 mg daily. 10/01/2024 Patient seen today on the cardiac stepdown unit. Patient is more alert and is able to answer questions today. Patient remains in a sinus rhythm. Blood pr essure 105/65, heart rate in the 70s and 80s, pulse ox 95% on room air. Repeat blood work reveals WBC 21.7, hemoglobin 11, BUN 135, creatinine 1.9, potassium 2.8. Potassium has been replaced. Echocardiogram has been obtained and report is pending. 10/02/2024 BP 70/49 heart rate 95 Telemetry shows sinus rhythm heart rate 95 bpm Labs Hb 11, BUN 110, creatinine 1.5 Echo shows EF 60 to 65%, hyperdynamic LV, severe aortic stenosis mean gradient of 56 mmHg, severe LVH 10/03/2024 Patient continues to be in intermittent atrial fibrillation. This morning she was in atrial fibrillation for which she got IV Lopressor. Thereafter she became hypotensive for which a team was called. Currently patient is getting IV fluids. BP is 93/59, heart rate 95 bpm. Labs shows creatinine of 1.8, BUN of 91, yesterday BUN 110, creatinine 1.5. Physical examination: LUNGS: Clear to auscultation. No wheezes or rhonchi. No intercostal retractions. HEART: Regular rate and rhythm. 4/6 systolic murmur at the right border and apex. ABDOMEN: Soft No tenderness. EXTREMITIES: Minimal pitting edema in ankles. No calf tenderness. NEUROLOGICAL: Drowsy, no focal neurological deficits, detailed exam was not performed Assessment: Severe aortic stenosis, likely symptomatic Paroxysmal atrial fibrillation, intermittently in RVR. New diagnosis 09/2024. Acute kidney injury Metabolic acidosis Leukocytosis, UTI Possible pneumonia Dementia Alcohol abuse TIAs Severe protein calorie malnutrition with BMI of 18 Patient is long-term resident at skilled nursing Plan: Hold all antihypertensives. Give metoprolol 12.5 mg twice daily Maintain IV fluids. Currently she is on D5 half-normal at 100 cc/h. Avoid any IV beta-blockers. Avoid any further AV travis blockers. Overall appears to have a cardiac prognosis. Patient has been made DNR however it is reasonable to have a conversation with the son tomorrow for possible aortic valve balloon valvuloplasty and TAVR workup. Objective - Vital Signs Vital signs: Vital Signs Temp 96.4 F L 10/03/24 15:45 Pulse 104 H 10/03/24 12:00 Resp 16 10/03/24 15:45 BP 93/59 10/03/24 15:45 Pulse Ox 96 10/03/24 15:45 FiO2 Intake & Output 10/02/24 10/03/24 10/03/24 18:59 06:59 18:59 Output Total 200 Balance -200 Weight 49 kg Output: Urine 200 Other: Voiding Method External Catheter External Catheter External Catheter - Labs CBC & Chem 7: 10/02/24 14:50 10/03/24 05:58 Labs: Abnormal Lab Results - Last 24 Hours (Table) 10/03/24 10/03/24 Range/Units 05:58 16:02 Potassium 3.0 L (3.5-5.1) mmol/L Chloride 108 H (98-107) mmol/L Carbon Dioxide 20 L (22-30) mmol/L BUN 91 H (7-17) mg/dL Creatinine 1.81 H (0.52-1.04) mg/dL Glucose 193 H (74-99) mg/dL POC Glucose (mg/dL) 132 H (70-110) mg/dL Calcium 6.3 L* (8.4-10.2) mg/dL Microbiology - Last 24 Hours (Table) 09/29/24 23:07 Blood Culture - Preliminary Blood
[2024-10-03] MEDS: METOPROLOL TARTRATE 12.5 MG TAB PO SCH (21:21)
[2024-10-03 23:32] VITALS: RESP 16
[2024-10-04 06:33] LABS: Ionized Calcium 4.1 mg/dL (4.5-5.3)
[2024-10-04 07:14] LABS: ALT 22 U/L (4-34); AST 44 U/L (14-36); African American GFR (CKD) 40 (>60 ml/min/1.73 sqM); Albumin 1.4 g/dL (3.5-5.0); Alkaline Phosphatase 142 U/L (38-126); Anion Gap 9 mmol/L; Blood Urea Nitrogen 79 mg/dL (7-17); Calcium 6.9 mg/dL (8.4-10.2); Carbon Dioxide 23 mmol/L (22-30); Chloride 111 mmol/L (98-107); Glucose 120 mg/dL (74-99); Magnesium 1.7 mg/dL (1.6-2.3); Non-African American GFR(CKD) 35 (>60 ml/min/1.73 sqM); Potassium 3.1 mmol/L (3.5-5.1); Sodium 143 mmol/L (137-145); Total Bilirubin 0.6 mg/dL (0.2-1.3)
[2024-10-04] MEDS ORDERED: VANCOMYCIN 750 MG in SODIUM CHLORIDE 0.9% 250 ML IVPB ONE (08:00)
[2024-10-04] MEDS: POTASSIUM CHLORIDE 10 MEQ in WATER FOR INJECTION 1 100ML.BAG IVPB SCH (11:03)
[2024-10-04 11:09] VITALS: TEMP 98.1
--- NOTE | 2024-10-04 11:42 | P.PN ---
Subjective HISTORY OF PRESENT ILLNESS: This is an 84-year-old with past medical history of dementia, alcohol abuse, TIAs. Patient presented to the hospital due to altered mental status. [facility] and was found to have a significant change in mental status as well as slurred speech and was brought into the hospital for further evaluation. Patient apparently was back to baseline mentation in the emergency center but was found to be in atrial fibrillation which is new for her. Patient was also found to be hypotensive. Blood pressure 107/56, heart rate 82, pulse ox 100% on room air. Patient is seen today in the emergency center waiting for a bed on the cardiac stepdown unit. Patient has been started on Cardizem drip currently at 5 mg/h and subcu heparin. Potassium and calcium been replaced. She is status post 2 L of IV fluid bolus -EKG: #1 atrial fibrillation 104 bpm, #2 sinus rhythm at 78 bpm. -Chest x-ray: Mild retrocardiac opacity. Correlate for pneumonia -CT brain: No acute process. -Renal ultrasound reveals no hydronephrosis. -Laboratory studies: Troponin negative x 2 WBC 32.2, hemoglobin 10.1. INR 1.2. Sodium 134, potassium 3.3, BUN 196, creatinine 3.09., Magnesium 2.2, alkaline phosphatase 165, ammonia 43. Calcium 7.0. Ionized calcium 3.9. Urinalysis positive for infection. -Home cardiac medications: Amlodipine 5 mg daily, aspirin 81 mg daily, atorvastatin 40 mg at bedtime, metoprolol succinate 50 mg daily. 10/01/2024 Patient seen today on the cardiac stepdown unit. Patient is more alert and is able to answer questions today. Patient remains in a sinus rhythm. Blood pressure 105/65, heart rate in the 70s and 80s, pulse ox 95% on room air. Repeat blood work reveals WBC 21.7, hemoglobin 11, BUN 135, creatinine 1.9, potassium 2.8. Potassium has been replaced. Echocardiogram has been obtained and report is pending. 10/02/2024 BP 70/49 heart rate 95 Telemetry shows sinus rhythm heart rate 95 bpm Labs Hb 11, BUN 110, creatinine 1.5 Echo shows EF 60 to 65%, hyperdynamic LV, severe aortic stenosis mean gradient of 56 mmHg, severe LVH 10/03/2024 Patient continues to be in intermittent atrial fibrillation. This morning she was in atrial fibrillation for which she got IV Lopressor. Thereafter she became hypotensive for which a team was called. Currently patient is getting IV fluids. BP is 93/59, heart rate 95 bpm. Labs shows creatinine of 1.8, BUN of 91, yesterday BUN 110, creatinine 1.5. 10/04/2024 Patient examined this morning at bedside. Patient is resting comfortably in bed. Patient without complaints of chest pain or pressure. Vital signs are stable. Telemetry reveals sinus mechanism with a heart rate around 95. PHYSICAL EXAM: VITAL SIGNS: Reviewed. GENERAL: Well-developed in no acute distress. NECK: Supple. No JVD or thyromegaly LUNGS: Respirations even and unlabored. Lungs essentially clear to auscultation bilaterally. HEART: Regular rate and rhythm. S1 and S2 heard. Systolic murmur noted. EXTREMITIES: Normal range of motion. No clubbing or cyanosis. Peripheral pulses intact. No lower extremity edema ASSESSMENT: Severe aortic stenosis, likely symptomatic Paroxysmal atrial fibrillation, intermittently in RVR. New diagnosis 09/2024. Acute kidney injury Metabolic acidosis Leukocytosis, UTI Possible pneumonia Dementia Alcohol abuse TIAs Severe protein calorie malnutrition with BMI of 18 [facility] PLAN: Continue current cardiac medications including aspirin, Lipitor, metoprolol Per Dr. Gallo, patient is not a candidate for any intervention with her aortic stenosis including aortic valve balloon valvuloplasty or TAVR No further inpatient recommendations from a cardiac standpoint We will sign off. Please reconsult if needed. Nurse practitioner note has been reviewed by physician. Signing provider agrees with the documented findings, assessment, and plan of care documented by [employer] as a scribe. Objective - Vital Signs Vital signs: Vital Signs Temp 98.1 F 10/04/24 11:01 Pulse 98 10/04/24 11:01 Resp 16 10/04/24 11:01 BP 118/70 10/04/24 11:01 Pulse Ox 98 10/04/24 11:01 FiO2 Intake & Output 10/03/24 10/04/24 10/04/24 18:59 06:59 18:59 Output Total 200 300 Balance -200 -300 Weight 59 kg Output: Urine 200 300 Other: Voiding Method External Catheter External Catheter External Catheter - Labs CBC & Chem 7: 10/02/24 14:50 10/04/24 06:10 Labs: Abnormal Lab Results - Last 24 Hours (Table) 10/03/24 10/04/24 Range/Units 16:02 06:10 Potassium 3.1 L (3.5-5.1) mmol/L Chloride 111 H (98-107) mmol/L BUN 79 H (7-17) mg/dL Creatinine 1.38 H (0.52-1.04) mg/dL Glucose 120 H (74-99) mg/dL POC Glucose (mg/dL) 132 H (70-110) mg/dL Calcium 6.9 L (8.4-10.2) mg/dL Ionized Calcium Wendi 4.1 L (4.5-5.3) mg/dL AST 44 H (14-36) U/L Alkaline Phosphatase 142 H (38-126) U/L Total Protein 4.0 L (6.3-8.2) g/dL Albumin 1.4 L (3.5-5.0) g/dL
--- NOTE | 2024-10-04 13:18 | P.DS ---
Providers Date of admission: 09/30/24 00:37 Attending physician: Hitesh Valentine Consults: 09/30/24 00:36 Consult Physician Urgent Consulting Provider: Tito Pennington Consult Reason/Comments: Encephalopathy Do you want consulting provider notified?: Yes, Notify in am Consult Physician Urgent Consulting Provider: Jn Palafox Consult Reason/Comments: ARF Do you want consulting provider notified?: Yes, Notify in am Primary care physician: Cindy Delgado DO Hospital Course: Final Diagnosis -Acute metabolic encephalopathy from infection and renal insufficiency - Persistent atrial fibrillation - Severe aortic stenosis - Acute kidney injury ATN from hypovolemia and hypotension - Possible UTI - Gallstones, asymptomatic with recent biliary stenting - Metabolic acidosis from kidney injury: Corrected - Chronic insomnia - Severe protein calorie malnutrition - Essential hypertension with hypotension - Hypotension from volume loss and antihypertensives - Cognitive impairment - Chronic gait dysfunction, uses a walker - Primary osteoarthritis Discharge Disposition Patient is stable for return to [facility] with hospice services. Hospital Course 84-year-old patient who is a Resident of [facility], resident at the [facility]. Per the EMS report the nurse reported that patient lethargic low blood pressure slurred speech refusing to eat and drink. Patient had refused transport but patient's guardian requested transport for further evaluation. Per the family at the bedside she had also been at an outside facility at [facility] had a biliary stent placed and was considered for gallbladder stone removal however felt clinically she would not do well with further procedures and was supposed to follow up on October 18 for possible stent removal. Initial vital signs per the EMS recorded were blood pressure 83/49 pulse 112 pulse ox 96%. States that she has been took a fall. While she was using a walker. Normally has a bowel movement about once a week. She is appetite is okay. Denies any fever and chills. Admitted with acute delirium, acute kidney injury, metabolic acidosis. Sodium bicarbonate drip tubes changed to saline. Refusing food. Some improvement in creatinine from 2.7 down to 1.97. Low potassium being replaced. She has been hypotensive and requiring fluid bolus. patient has been started empirically on IV ceftriaxone. Was having issues with atrial fibrillation with RVR and because of her inability to tolerate oral intake was given IV metoprolol which worsened the hypotension. Cardiology was recommending possible work up for TAVR/Aortic valve as she does have known aortic stenosis. Family at the bedside and not wanting any further aggressive measures or treatments and has opted for patient to return to [facility] on Hospice today. Jimmie adams is resting in bed comfortably alert x1. BUN of 79, creatinine of 1.83. Potassium 3.1. She has been getting D5 1/2 ns at 100 mls/hr. Please see medication reconciliation for a list of current medications. Thank you for allowing us to participate in the care of this patient. The impression and plan of care has been dictated by Ophelia Mason, Nurse Practitioner as directed. Dr. Arnold MD I have performed a history and physical examination and medical decision making of this patient, discussed the same with the dictator, and agree with the dictators assessment and plan as written, documented as a scribe. Based on total visit time, I have performed more than 50% of this visit. Patient Condition at Discharge: Stable Plan - Discharge Summary Discharge Rx Participant: No New Discharge Prescriptions: No Action amLODIPine [Norvasc] 5 mg PO DAILY Aspirin 81 mg PO DAILY Acetaminophen [Tylenol] 650 mg PO Q6H PRN PRN Reason: Fever And/ Or Pain Mirtazapine 7.5 mg PO HS Metoprolol Succinate (ER) [Toprol Xl] 50 mg PO DAILY Atorvastatin [Lipitor] 40 mg PO HS Discharge Medication List Acetaminophen [Tylenol] 650 mg PO Q6H PRN 09/30/24 [History] Aspirin 81 mg PO DAILY 09/30/24 [History] Atorvastatin [Lipitor] 40 mg PO HS 09/30/24 [History] Metoprolol Succinate (ER) [Toprol Xl] 50 mg PO DAILY 09/30/24 [History] Mirtazapine 7.5 mg PO HS 09/30/24 [History] amLODIPine [Norvasc] 5 mg PO DAILY 09/30/24 [History] Follow up Appointment(s)/Referral(s): Cindy Delgado DO [Primary Care Provider] - 1-2 days
[2024-10-04 15:04] VITALS: BP 93/61; PULSE 72
--- NOTE | 2024-10-04 16:22 | P.PN ---
Subjective Progress Note Date: 10/04/24 Patient was initially seen by Dr. Tito Pennington. Please refer to his note for details. Patient is a 84-year-old female came with toxic metabolic encephalopathy. Had a repeat CT head which was negative. EEG was negative for seizures. MRI was attempted last week, but it was down. Patient is present is laying in the bed, in no distress. When I tried to examine her, patient states "leave me alone". Some of the work-up during this hospital visit consisted of: On initial presentation her blood pressure was in 80's over 40's Patient is afebrile. wbc is 32K and is neutrophilic BUT is 196 and Creatnine is 3.09 Ammonia 43 Calcium is 7.0 and ionized calcium is 3.9 TSH is normal limits. U/A is leukocyte esterase is moderate, urine wbc is 48 and bacteria is occasional I reviewed the rest of lab work-up. CT head is reported as No acute intracranial hemorrhage, midline shift or mass effect. I personally reviewed CT head and agree with report. I also feel there is likely old stroke over the right boyd radiata region/external capsule. EKG: A-fib with RVR. Carotid duplex: <50% stenosis of the carotid bifurcation bilaterally. Routine EEG: Is abnormal. The background slowing is suggestive of mild to moderate encephalopathy. There is no focal slowing, epileptiform discharges or seizure on the EEG. Repeat CT head: No acute intracranial process. Objective - Vital Signs Vital signs: Vital Signs Temp 98.1 F 10/04/24 11:01 Pulse 72 10/04/24 15:02 Resp 16 10/04/24 15:02 BP 93/61 10/04/24 15:02 Pulse Ox 94 L 10/04/24 15:02 FiO2 Intake & Output 10/03/24 10/04/24 10/04/24 18:59 06:59 18:59 Output Total 200 400 Balance -200 -400 Weight 59 kg Output: Urine 200 400 Other: Voiding Method External Catheter External Catheter External Catheter # Bowel Movements 1 - Exam Patient is laying in the bed. Sleeping. On waking her up, patient was mumbling. When I tried to examine her, patient states "leave me alone. Her tone appears to be increased. She is tremulous. Rest of the examination defer red. - Labs CBC & Chem 7: 10/02/24 14:50 10/04/24 06:10 Labs: Abnormal Lab Results - Last 24 Hours (Table) 10/04/24 Range/Units 06:10 Potassium 3.1 L (3.5-5.1) mmol/L Chloride 111 H (98-107) mmol/L BUN 79 H (7-17) mg/dL Creatinine 1.38 H (0.52-1.04) mg/dL Glucose 120 H (74-99) mg/dL Calcium 6.9 L (8.4-10.2) mg/dL Ionized Calcium Wendi 4.1 L (4.5-5.3) mg/dL AST 44 H (14-36) U/L Alkaline Phosphatase 142 H (38-126) U/L Total Protein 4.0 L (6.3-8.2) g/dL Albumin 1.4 L (3.5-5.0) g/dL Assessment and Plan Assessment: This is an 84 y/o woman who presents to emergency department because of altered mental status and slurred speech. She was found to be hypotensive at her nursing facility. In our facility she was found to be in Acute renal failure with elevated ammonia. Altered mental status due to toxic-metabolic/uremic encephalopathy (has LUISA, elevated ammonia, hypotension and hypocalcemia)--mentation improving. EEG is negative for seizure or discharge. Reported episode of dysarthria probable due to above. But cannot rule out acute CVA especially with hx of A-fib Acute renal failure Hyperammonemia Hypotension Hypocalcemia Leukocytosis and patient is afebrile. Possible due to dehydration. R/O acute UTI History of dementia History of reported TIA but I feels she had old stroke over the right boyd radiata/external capsule region History of atrial fibrillation and is not on anticoagulation. Current EKG show A-fib with RVR Severe aortic stenosis. History of reported alcoholism Plan: MRI Brain machine continues to be down so will consider MRI Brain once machine is functional if patient continues to have confusion to rule out acute to subacute stroke. Repeat CT head is unremarkable for acute process. Limited examination nonfocal. Patient is on ASA 81mg daily and Lipitor 40mg qhs. 2D echo revealed hyperdynamic LV with EF 60 to 65%. Severe aortic stenosis with mean gradient of 56 mmHg. Severe left atrial dilation. Cardiology team is consulted. Nephrology team is consulted Q4 hour neuro checks. Cardiac monitoring After discussing with the nurse, it appears patient is being transferred to [facility] hosp[facility]. Patient has multiple medical issues. Neurology will sign off. Please reconsult if any concerns.
--- NOTE | 2024-10-04 17:59 | P.PN ---
Subjective Patient is seen for follow-up for acute kidney injury. Serum creatinine improved to 1.3 from 1.8 yesterday Maintained on IV fluids Objective - Vital Signs Vital signs: Vital Signs Temp 98.1 F 10/04/24 11:01 Pulse 72 10/04/24 15:02 Resp 16 10/04/24 15:02 BP 93/61 10/04/24 15:02 Pulse Ox 94 L 10/04/24 15:02 FiO2 Intake & Output 10/03/24 10/04/24 10/04/24 18:59 06:59 18:59 Output Total 200 400 Balance -200 -400 Weight 59 kg Output: Urine 200 400 Other: Voiding Method External Catheter External Catheter External Catheter # Bowel Movements 1 - Exam Patient is comfortable, no acute distress Examination of the heart S1 and S2 Examination of the lungs bilateral breath sounds are heard Abdomen is soft nontender Examination of lower extremities shows no evidence of edema - Labs CBC & Chem 7: 10/02/24 14:50 10/04/24 06:10 Labs: Abnormal Lab Results - Last 24 Hours (Table) 10/04/24 Range/Units 06:10 Potassium 3.1 L (3.5-5.1) mmol/L Chloride 111 H (98-107) mmol/L BUN 79 H (7-17) mg/dL Creatinine 1.38 H (0.52-1.04) mg/dL Glucose 120 H (74-99) mg/dL Calcium 6.9 L (8.4-10.2) mg/dL Ionized Calcium Wendi 4.1 L (4.5-5.3) mg/dL AST 44 H (14-36) U/L Alkaline Phosphatase 142 H (38-126) U/L Total Protein 4.0 L (6.3-8.2) g/dL Albumin 1.4 L (3.5-5.0) g/dL Assessment and Plan Assessment: 1. Acute kidney injury secondary to ATN secondary to hypovolemia and hypotension. Creatinine 3.09 on admission and improved to 1.5 -1.3 today. BUN trending down. Creatinine in February 2022 was 0.6. No hydronephrosis noted on kidney ultrasound. 2. A-fib with RVR status post Cardizem drip. 3. Metabolic acidosis secondary to acute kidney injury and IV fluids. 4. UTI. On antibiotics. 5. Hypokalemia from poor intake and zosyn causing renal potassium wasting. 6. Aortic stenosis. Plan: Continue IV fluids Replace potassium Repeat labs in a.m.
--- NOTE | 2024-10-07 10:04 | CDI ---
Documentation Clarification Form Date: 10/07/24 From: Katiana Holloway Admit Date: 09/30/2024 12:37:00 AM Patient Name: Francine Elliott Visit Number: [id number] Discharge Date: 10/04/2024 06:52:00 PM ATTENTION: The Clinical Documentation Specialists (CDI) and [facility] Coding Staff appreciate your assistance in clarifying documentation. Please respond to the clarification below the line at the bottom and electronically sign. The CDI & [facility] Coding staff will review the response and follow-up if needed. Please note: Queries are made part of the Legal Health Record. If you have any questions, please contact the author of this message via ITS. Doctor/Provider: Heath Barrett Sepsis is documented in the ED Note (09/29), but is not noted in subsequent documentation. Clarification is requested. History/Risk Factors: HTN, dementia, , cachexia, severe malnutrition w BMI of 18, Hx of alcoholism Clinical Indicators: (all on admission) UTI Toxic metabolic encephalopathy Paroxysmal atrial fibrillation Hypotension WBC-32.27 Neutrophils- 29.71 OK 111 BP 89/59 CR 3.09 INR 1.2 Total Bilirubin 1.7 Treatment: (09/29) IV Sodium chloride 1000ml, IV Rocephin 1000 mg; (10/01) IV Zosyn 100 mls. Made a DNR and sent to medical hospice. Please clarify if the is: [ x ] Sepsis confirmed on admission due to UTI, remains under treatment [ ] Sepsis ruled out [ ] Other condition, please specify [ ] Unable to determine MTDD
== END 2024-10-04 18:52 | disposition hospice, inpatient (51) | DRG 871 ==
LOC: SUPCPDRO 21:44 → EC 21:44 → 3SCARD 09-30 00:37
PROVIDERS: ADMIT Hospitalist; ATTEND Hospitalist
DX: A41.9 Sepsis, unspecified organism (principal); E43 Unspecified severe protein-calorie malnutrition; N17.0 Acute kidney failure with tubular necrosis; G92.8 Other toxic encephalopathy; E72.20 Disorder of urea cycle metabolism, unspecified; E87.20 Acidosis, unspecified; E86.0 Dehydration; F05 Delirium due to known physiological condition; R64 Cachexia; Z68.1 Body mass index [BMI] 19.9 or less, adult; N39.0 Urinary tract infection, site not specified; F10.21 Alcohol dependence, in remission; F03.90 Unspecified dementia, unspecified severity, without behavioral disturbance, psychotic disturbance, mood disturbance, and anxiety; I10 Essential (primary) hypertension; I35.0 Nonrheumatic aortic (valve) stenosis; I65.23 Occlusion and stenosis of bilateral carotid arteries; I48.0 Paroxysmal atrial fibrillation; Z66 Do not resuscitate; Z51.5 Encounter for palliative care; E86.1 Hypovolemia; I95.9 Hypotension, unspecified; E87.6 Hypokalemia; E83.51 Hypocalcemia; R47.1 Dysarthria and anarthria; R26.9 Unspecified abnormalities of gait and mobility; K80.20 Calculus of gallbladder without cholecystitis without obstruction; M19.91 Primary osteoarthritis, unspecified site; F51.04 Psychophysiologic insomnia; Z79.82 Long term (current) use of aspirin; Z79.899 Other long term (current) drug therapy; Z86.73 Personal history of transient ischemic attack (TIA), and cerebral infarction without residual deficits
CPT/HCPCS: 36415; 70450; 71045; 76770; 80048; 80053; 81001; 82140; 82330; 83605; 83735; 84132; 84443; 84484; 85025; 85610; 85730; 87040; 87086; 93005; 93306; 93880; 95816; 96361; 96365; 96366; 96367; 96368; 96375; 99291